=== PATIENT | female | born 1975 | race Two or more races ===

== ENCOUNTER 2021-05-28 08:29 | Outpatient (REF) | payer OTHER, SELFPAY ==
[2021-05-29 15:13] LABS: CT PCR NOT DETECTED (Not Detect.); NG PCR NOT DETECTED (Not Detect.)
[2021-05-30 10:50] LABS: BV Int Neg Control Negative (Negative); BV Int Pos Control Positive (Positive)
[2021-06-03 10:01] LABS: HPV mRNA E6/E7 rflx Not Detected (Not Detected)
== END 2021-05-28 08:30 | disposition home or self-care (01) ==
LOC: HO.LAB 08:29
PROVIDERS: Visit Provider Advanced Practice Midwife
DX: Z01.411 Encounter for gynecological examination (general) (routine) with abnormal findings (principal); Z11.3 Encounter for screening for infections with a predominantly sexual mode of transmission; Z11.51 Encounter for screening for human papillomavirus (HPV); N89.8 Other specified noninflammatory disorders of vagina; Z20.2 Contact with and (suspected) exposure to infections with a predominantly sexual mode of transmission
CPT/HCPCS: 87480; 87491; 87510; 87591; 87624; 87660; 88142

== ENCOUNTER 2021-07-01 09:14 | Outpatient (REF) | payer OTHER, SELFPAY ==
--- NOTE | ~2021-07-01 | MM_ITS ---
EXAMINATION: MM SCREENING DIGITAL BREAST TOMOSYNTHESIS, BILATERAL CLINICAL INFORMATION: Screening. Asymptomatic. The lifetime risk of breast cancer based on the Tyrer-Cuzick Model is 12.8%. COMPARISON: Mammography: July 18, 2013 TECHNIQUE: Digital breast tomosynthesis is performed in both the craniocaudal and mediolateral oblique views along with computer-aided detection (CAD). Synthesized 2D images are generated from the tomosynthesis. FINDINGS: There are scattered areas of fibroglandular density (ACR BI-RADS breast composition Category b). There are no significant masses, abnormal calcifications, or other abnormalities. MM/MM tomosynthesis screening BI IMPRESSION: There are no significant changes from prior study. ASSESSMENT: BI-RADS 1: Negative RECOMMENDATION: Routine annual mammography screening. This patient's information was entered into a reminder system with a target due date for their next mammogram.
== END 2021-07-01 09:15 | disposition home or self-care (01) ==
LOC: HO.MAMMO 09:14
PROVIDERS: Visit Provider Advanced Practice Midwife
DX: Z12.31 Encounter for screening mammogram for malignant neoplasm of breast (principal)
CPT/HCPCS: 77063; 77067

== ENCOUNTER 2021-07-28 17:18 | Emergency (ER) | payer OTHER, SELFPAY ==
--- NOTE | ~2021-07-28 | XR_ITS ---
EXAMINATION: XR CHEST CLINICAL INFORMATION: Syncopal episode. COMPARISON: Chest radiograph dated from 08/20/2012. TECHNIQUE: AP view of the chest was obtained. FINDINGS: Normal appearance of the cardiomediastinal silhouette. EKG wires overlie the patient. Clear lungs. No pleural effusions or pneumothorax. No acute osseous abnormalities. XR/XR chest 1V IMPRESSION: No acute cardiopulmonary findings.
--- NOTE | ~2021-07-28 | CT_ITS ---
EXAMINATION: CT HEAD WITHOUT CONTRAST CT CERVICAL SPINE WITHOUT CONTRAST CLINICAL INFORMATION: Trauma. COMPARISON: None. TECHNIQUE: Contiguous axial imaging was performed from the skull base to vertex without intravenous administration of contrast. Contiguous axial imaging was performed from the upper chest through the skull base without intravenous administration of contrast. Coronal and sagittal reformats were obtained at the acquisition workstation. This CT examination was performed using dose optimization techniques as appropriate, variously including the following: *Automated exposure control *Adjustment of mA and/or kV according to patient size (this includes techniques or standardized protocols for targeted exams where dose is matched to indication/reason for exam; i.e. extremities or head) *Use of iterative reconstruction technique DLP: 407 mGy-cm FINDINGS: Head: There is no evidence of acute intracranial hemorrhage or edematous territorial infarction. There is no abnormal attenuation within the brain parenchyma. Slater-white matter differentiation is preserved. The ventricles are normal in size and configuration. No evidence for obstructive hydrocephalus. No abnormal mass effect or midline shift. No extra-axial fluid collections. No acute soft tissue or osseous abnormalities. The mastoid air cells and paranasal sinuses are clear. Cervical Spine: The atlantooccipital and atlantoaxial articulations remain well aligned. Straightening of the normal cervical lordosis. Otherwise, there is anatomic alignment of the vertebral bodies and posterior elements. No evidence of acute fracture or subluxation. Mild cervical spondylosis with minimal disc space narrowing and anterior osteophytes. There is no prevertebral soft tissue swelling. The thyroid gland and remaining cervical soft tissues are normal in appearance. The lung apices demonstrate no abnormalities. CT/CT cervical spine wo con IMPRESSION: No acute intracranial pathology. No acute cervical fractures or malalignment.
[2021-07-28 17:30] VITALS: BP 121/75; BP 136/82; PULSE 18; PULSE 68; RESP 18; TEMP 36.9; O2SAT 98; BMI 30.2
--- NOTE | 2021-07-28 17:44 | ECG_ITS ---
Test Reason : SYNCOPE Blood Pressure : / mmHG Vent. Rate : 067 BPM Atrial Rate : 067 BPM P-R Int : 188 ms QRS Dur : 090 ms QT Int : 396 ms P-R-T Axes : 033 008 040 degrees QTc Int : 418 ms Normal sinus rhythm Normal ECG No previous ECGs available Referred By: Luc Pena Electronically Signed By:ADRIANA LYNNE MD
--- NOTE | 2021-07-28 17:48 | ED_ITS ---
HPI - Syncope General Chief Complaint: Syncope Stated Complaint: syncope Time Seen by Provider: 07/28/21 17:43 Source: patient Mode of arrival: ambulatory Limitations: no limitations History of Present Illness HPI narrative: 46-year-old female unvaccinated presents to the emergency department with cough for several days. She states she has had intermittent fevers and has had nausea with vomiting. Patient states today she was in the bathroom and she passed out she did hit her head. She is complaining of pain e verywhere. She has not taken anything for the pain. MD complaint: loss of consciousness and felt faint Onset (ago): hour(s) Related Data Previous Rx's Medication Instructions Recorded metronidazole 0.75 % vaginal gel 1 appful VAGINAL BID 5 Days #70 g 05/28/21 (Metrogel Vaginal) ondansetron 4 mg disintegrating 4 mg PO Q6H #14 tab 07/28/21 tablet Allergies Allergy/AdvReac Type Severity Reaction Status Date / Time morphine [Morphine] Allergy Severe HIVES Verified 05/28/21 08:41 Review of Systems Review of Systems: Review of systems: General: Fever chills and cough for several days Musculoskeletal: Hit head neck and back pain body aches all over her body HEENT: Headache denies, runny nose, ear pain Respiratory: Cough denies shortness of breath Cardiovascular: She denies palpitations but does have pain to her chest when she coughs or vomits : denies dysuria, frequency Abdomen: nausea vomiting denies abdominal pain Extremities: no swelling, no pain Skin: no diaphoresis Yes all other systems are reviewed and are negative [facility] Past Medical History Medical History (Updated 07/28/21 @ 19:54 by Luc Pena DO) Cervical cancer screening Simple ovarian cyst Surgical History (Updated 05/28/21 @ 08:51 by Domenic Blancas CMA) Hx of tonsillectomy Social History Social History Alcohol intake: current Alcohol intake frequency: holidays/special occasions only Patient Tobacco Use Status: Never used Tobacco Use of substances other than those prescribed or required for medical reasons: Yes Substance Use Type: Marijuana Substance Use Frequency: Occasionally Advance Directives: No Advance Directives Information Provided: No Gender identity: Female Physical Exam Vital Signs: Vital Signs: Last Vital Signs Temp 98.5 F 01/05/22 17:30 Pulse 67 07/28/21 19:28 Resp 14 07/28/21 19:28 BP 131/76 07/28/21 19:28 Pulse Ox 97 07/28/21 19:28 BMI result Body Mass Index 30.2 General: Well-appearing well-nourished in no signs of distress HEENT: Normocephalic atraumatic no hemotympanum no nasal septal hematoma Neck: No signs of JVD, no masses patient does have tenderness to the palpation of the midline of the spine and cervical area Cardiovascular: Regular rate and rhythm Respiratory: Clear to auscultation bilaterally Abdomen: Soft nontender no masses Extremities: Normal pedal pulses no signs of edema full range of motion of upper and lower extremities Skin: Dry warm no rashes Back: No tenderness full ROM MDM - Syncope MDM Narrative Medical decision making narrative: Patient here with syncope complaining of pain all over her body hard to assess if this is related to the trauma or due to her likely COVID infection we will send off labs give patient Toradol Ativan in fluids. Patient has remarkably normal vitals for her multiple complaints. 1905 patient is sitting up moving around in the bed looks much more comfortable she is playing with her iPhone. Patient is still pending lab draw and CT scan. 1936 labs are normal patient continues to have normal vitals patient states that she is not excited explained she is COVID positive. Tried to explain there is no bleed treatments for this as she coming off to me that she is worried about head and she continued to him about about her chest is. I did explain that her EKG and labs are all normal we are still waiting for chest x-ray and CT head neck. Lab Data Result diagrams: 07/28/21 19:11 07/28/21 19:11 Labs: Lab Results 07/28/21 07/28/21 07/28/21 Range/Units 19:11 19:11 19:11 WBC 4.4 L (4.8-10.8) X10*3/uL RBC 4.24 (4.20-5.50) X10*6/uL Hgb 13.9 (12.0-16.0) g/dl Hct 41.8 (37.0-47.0) % MCV 98.6 H (80.0-98.0) fL MCH 32.8 (27.0-33.0) pg MCHC 33.3 (31.0-35.0) g/dl RDW 12.3 (11.0-16.0) % Plt Count 263 (160-400) X10*3/uL MPV 10.5 (9.4-12.3) fL Immature Gran % (Auto) 0.0 (0.0-0.4) % Neut % (Auto) 51.4 (45-73) % Lymph % (Auto) 33.6 (20-40) % Swisher % (Auto) 14.3 H (2-11) % Eos % (Auto) 0.2 (0-4) % Baso % (Auto) 0.5 (0-2) % Lymph # (Auto) 1.5 (1.2-4.9) X10*3/uL Swisher # (Auto) 0.6 (0.1-1.2) X10*3/uL Eos # (Auto) 0.0 (0.0-0.4) X10*3/uL Baso # (Auto) 0.0 (0.0-0.2) X10*3/uL Abs Immat Gran (auto) 0.00 (0.00-0.03) X10*3/uL Absolute Neuts (auto) 2.2 (2.0-8.3) x10*3/uL Absolute Nucleated RBC 0.000 (0.0-0.012) X10*3/uL Nucleated RBC % (auto) 0.0 (0.0-0.2) /100WBC Sodium 141 (135-145) mmol/L Potassium 4.3 (3.3-5.1) mmol/L Chloride 109 H (96-108) mmol/L Carbon Dioxide 27 (22-29) mmol/L Anion Gap 9 L (12-20) BUN 6 L (9-16) mg/dL Creatinine 0.71 (0.5-1.4) mg/dL Estim Creat Clear Calc 101.2 Estimated GFR > 60 Random Glucose 89 (60-115) mg/dL Calcium 8.9 (8.4-10.2) mg/dL Total Bilirubin 0.3 (0.0-1.0) mg/dL Direct Bilirubin < 0.2 (0.0-0.5) mg/dL AST 26 (5-31) U/L ALT 30 (0-31) U/L Alkaline Phosphatase 65 (39-117) U/L Total Protein 6.8 (6.5-8.0) g/dL Albumin 4.0 (3.5-5.0) g/dL Lipase 35 (8-78) U/L COVID-19 (AUTUMN) Positive A (Negative) COVID-19 Clin Com See Note ECG Data Attestation: I personally reviewed and interpreted this ECG as follows: ECG interpretation date: 07/28/21 ECG interpretation time: 19:06 Prior ECG tracings: not available for review Pacemaker model: Rate 67 nsr normal intervals no signs of ischemia Discharge Plan Discharge Clinical Impression: COVID-19, Vomiting, Acute dehydration Patient Disposition: Still a Patient Transfer Details: Patient will be signed out pending CT XR to Dr. Zamora. Workup up to this point is negative. Expected disposition to home. Instructions: Acute Nausea and Vomiting (ED), COVID-19 (Coronavirus Disease 2019) (ED) Additional Instructions: You have COVID-19 you need to quarantine for the next 5 days. You should get vaccinated 90 days after you feel well. Using a COVID again even though you have had this 1 time. If you have any other concerns please do not hesitate to come back emergency department. Prescriptions: New ondansetron 4 mg tablet,disintegrating 4 mg PO Q6H Qty: 14 RF: 0 No Action metronidazole [Metrogel Vaginal] 0.75 % gel 1 appful vaginal BID 5 Days Qty: 70 RF: 2
[2021-07-28] MEDS: 0.9 % Sodium Chloride 500 ML 999 ML IV ×3 (18:18→20:20)
[2021-07-28] MEDS: LORazepam 2 MG/ML VIAL 1 MG IVPUSH (18:21)
[2021-07-28 19:16] LABS: MANUAL DIFF FLAG NO
[2021-07-28 19:25] LABS: Basophils Percent Auto 0.5 % (0-2); Eosinophils Percent Auto 0.2 % (0-4); Hematocrit 41.8 % (37.0-47.0); Hemoglobin 13.9 g/dl (12.0-16.0); Lymphocytes Absolute Auto 1.5 X10*3/uL (1.2-4.9); Lymphocytes Percent Auto 33.6 % (20-40); Mean Corpuscular HGB Conc 33.3 g/dl (31.0-35.0); Mean Corpuscular Hemoglobin 32.8 pg (27.0-33.0); Mean Corpuscular Volume 98.6 fL (80.0-98.0); Mean Platelet Volume 10.5 fL (9.4-12.3); Monocytes Absolute Auto 0.6 X10*3/uL (0.1-1.2); Monocytes Percent Auto 14.3 % (2-11); Neutrophils Absolute Auto 2.2 x10*3/uL (2.0-8.3); Neutrophils Percent Auto 51.4 % (45-73); Platelet Count 263 X10*3/uL (160-400); Red Blood Count 4.24 X10*6/uL (4.20-5.50); Red Cell Distribution Width 12.3 % (11.0-16.0); White Blood Count 4.4 X10*3/uL (4.8-10.8)
[2021-07-28 19:26] LABS: COVID-19 Test Positive (Negative)
[2021-07-28 19:28] VITALS: BP 131/76; PULSE 67; RESP 14; O2SAT 97
[2021-07-28 19:43] LABS: Alanine Aminotransferase 30 U/L (0-31); Alkaline Phosphatase 65 U/L (39-117); Anion Gap 9 (12-20); Aspartate Amino Transferase 26 U/L (5-31); Bilirubin Direct < 0.2 mg/dL (0.0-0.5); Bilirubin Total 0.3 mg/dL (0.0-1.0); Blood Urea Nitrogen 6 mg/dL (9-16); Calcium 8.9 mg/dL (8.4-10.2); Carbon Dioxide 27 mmol/L (22-29); Chloride 109 mmol/L (96-108); Creatinine Clr Calc Pharmacy 101.2; Estimated Glomerular Filt Rate > 60; Glucose Random 89 mg/dL (60-115); Lipase 35 U/L (8-78); Potassium 4.3 mmol/L (3.3-5.1); Sodium 141 mmol/L (135-145); Total Protein 6.8 g/dL (6.5-8.0)
[2021-07-28] MEDS: Ketorolac Tromethamine 30 MG/ML VIAL 15 MG IVPUSH (20:13)
[2021-07-28] MEDS: ondansetron HCL 4 MG/2 ML VIAL IVPUSH (20:24)
[2021-07-28] MEDS: Acetaminophen 325 MG TABLET 650 MG PO (20:25)
[2021-07-28] MEDS: predniSONE 20 MG TABLET 60 MG PO (20:26)
[2021-07-28 21:36] VITALS: BP 137/86; PULSE 76; RESP 18; O2SAT 98
== END 2021-07-28 21:37 | disposition still patient (30) ==
PROVIDERS: Emergency Provider Student in an Organized Health Care Education/Training Program
DX: U07.1 COVID-19 (principal); E86.0 Dehydration; R11.10 Vomiting, unspecified
CPT/HCPCS: 70450; 71045; 72125; 80048; 80076; 83690; 85025; 87635; 93005; 96374; 96375; 99284; J1885; J2060; J2405

== ENCOUNTER 2021-08-11 10:12 | Outpatient (REF) | payer OTHER, SELFPAY ==
[2021-08-11 10:37] LABS: COVID-19 Test Negative (Negative); IDNOW Serial# 16C4AD1C
== END 2021-08-11 10:13 | disposition home or self-care (01) ==
LOC: HO.LAB 10:12
PROVIDERS: Visit Provider Internal Medicine
DX: Z20.822 Contact with and (suspected) exposure to COVID-19 (principal)
CPT/HCPCS: 87635; C9803

== ENCOUNTER 2021-10-14 09:25 | Outpatient (REF) | payer OTHER, SELFPAY ==
[2021-10-14 10:04] LABS: Baso%MD 1.1 %; Eos%MD 2.9 %; Hematocrit 42.5 % (37.0-47.0); Hemoglobin 13.5 g/dl (12.0-16.0); IG%MD 0.2 %; Lymph%MD 31.6 %; Mean Corpuscular HGB Conc 31.8 g/dl (31.0-35.0); Mean Corpuscular Hemoglobin 32.2 pg (27.0-33.0); Mean Corpuscular Volume 101.4 fL (80.0-98.0); Mean Platelet Volume 10.3 fL (9.4-12.3); Mono%MD 8.7 %; Neut%MD 55.5 %; Platelet Count 360 X10*3/uL (160-400); Red Blood Count 4.19 X10*6/uL (4.20-5.50); Red Cell Distribution Width 12.5 % (11.0-16.0); White Blood Count 6.6 X10*3/uL (4.8-10.8)
[2021-10-14 10:43] LABS: Estimated Average Glucose 108 mg/dL; Hemoglobin A1c % 5.4 %
[2021-10-14 10:45] LABS: Alanine Aminotransferase 16 U/L (0-31); Albumin Level 4.2 g/dL (3.5-5.0); Alkaline Phosphatase 60 U/L (39-117); Anion Gap 15 (12-20); Aspartate Amino Transferase 18 U/L (5-31); Bilirubin Total 0.5 mg/dL (0.0-1.0); Blood Urea Nitrogen 10 mg/dL (9-16); Calcium 9.7 mg/dL (8.4-10.2); Carbon Dioxide 25 mmol/L (22-29); Chloride 108 mmol/L (96-108); Cholesterol 215 mg/dL; Estimated Glomerular Filt Rate > 60; Glucose Fasting 107 mg/dL (60-99); HDL Cholesterol 64 mg/dL; LDL Cholesterol Calculated 139 mg/dl; Potassium 4.6 mmol/L (3.3-5.1); Sodium 143 mmol/L (135-145); Total Protein 7.1 g/dL (6.5-8.0); Triglycerides 62 mg/dL
[2021-10-14 11:03] LABS: Folate 14.7 ng/mL (> or = 4.0); Vitamin B12 507 pg/mL (200-900)
[2021-10-14 11:07] LABS: TSH reflex Free T4 5.74 uIU/mL (0.32-4.0)
[2021-10-14 13:00] LABS: Eosinophils Absolute Manual 0.1 X10*3/uL (0.0-0.4); Eosinophils Percent Manual 1 % (0-4); Lymphocytes Percent Manual 31 % (20-40); Monocytes Absolute Manual 0.5 X10*3/uL (0.1-1.2); Monocytes Percent Manual 8 % (2-11); Neutrophils Percent Manual 60 % (45-73); Platelet Estimate NORMAL (NORMAL); Platelet Morphology Comment NORMAL; RBC Morphology NORMAL
[2021-10-14 13:17] LABS: Band Neutrophils Percent 0 % (3-5)
[2021-10-14 14:28] LABS: Free T4 (Free Thyroxine) 0.69 ng/dL (0.71-1.85)
[2021-10-19 15:51] LABS: Vitamin D 25-OH, D2 10 ng/mL; Vitamin D 25-OH, D3 19 ng/mL; Vitamin D 25-OH, Total 29 ng/mL (30-100)
== END 2021-10-14 09:26 | disposition home or self-care (01) ==
LOC: HO.LAB 09:25
PROVIDERS: PCP Nurse Practitioner Acute Care; Visit Provider Nurse Practitioner Acute Care
DX: Z00.00 Encounter for general adult medical examination without abnormal findings (principal); E03.9 Hypothyroidism, unspecified; E55.9 Vitamin D deficiency, unspecified
CPT/HCPCS: 36415; 80053; 80061; 82306; 82607; 82746; 83036; 84439; 84443; 85007; 85027

== ENCOUNTER 2022-05-19 12:22 | Outpatient (REF) | payer OTHER, SELFPAY ==
[2022-05-19 12:59] LABS: MANUAL DIFF FLAG NO
[2022-05-19 13:40] LABS: Basophils Absolute Auto 0.1 X10*3/uL (0.0-0.2); Basophils Percent Auto 0.9 % (0-2); Eosinophils Absolute Auto 0.2 X10*3/uL (0.0-0.4); Eosinophils Percent Auto 2.1 % (0-4); Hematocrit 43.2 % (37.0-47.0); Imm Gran Abs Auto 0.02 X10*3/uL (0.00-0.03); Imm Gran Pct Auto 0.3 % (0.0-0.4); Lymphocytes Absolute Auto 1.9 X10*3/uL (1.2-4.9); Lymphocytes Percent Auto 27.4 % (20-40); Mean Corpuscular HGB Conc 32.4 g/dl (31.0-35.0); Mean Corpuscular Hemoglobin 32.5 pg (27.0-33.0); Mean Corpuscular Volume 100.2 fL (80.0-98.0); Mean Platelet Volume 10.9 fL (9.4-12.3); Monocytes Absolute Auto 0.6 X10*3/uL (0.1-1.2); Monocytes Percent Auto 7.8 % (2-11); Neutrophils Absolute Auto 4.3 x10*3/uL (2.0-8.3); Neutrophils Percent Auto 61.5 % (45-73); Platelet Count 367 X10*3/uL (160-400); Red Blood Count 4.31 X10*6/uL (4.20-5.50); Red Cell Distribution Width 12.4 % (11.0-16.0)
[2022-05-19 14:27] LABS: Alanine Aminotransferase 11 U/L (0-31); Albumin Level 4.3 g/dL (3.5-5.0); Alkaline Phosphatase 62 U/L (39-117); Anion Gap 15 (12-20); Aspartate Amino Transferase 14 U/L (5-31); Bilirubin Total 0.4 mg/dL (0.0-1.0); Blood Urea Nitrogen 10 mg/dL (9-16); Calcium 9.6 mg/dL (8.4-10.2); Carbon Dioxide 23 mmol/L (22-29); Chloride 109 mmol/L (96-108); Cholesterol 195 mg/dL; Estimated Glomerular Filt Rate > 60; Glucose Fasting 107 mg/dL (60-99); HDL Cholesterol 57 mg/dL; LDL Cholesterol Calculated 125 mg/dl; Potassium 5.2 mmol/L (3.3-5.1); Sodium 142 mmol/L (135-145); Total Protein 7.1 g/dL (6.5-8.0); Triglycerides 68 mg/dL
[2022-05-19 14:35] LABS: TSH reflex Free T4 4.06 uIU/mL (0.32-4.0); Vitamin D 25-OH Total 21.6 ng/mL (>30)
[2022-05-19 15:09] LABS: Free T4 (Free Thyroxine) 0.74 ng/dL (0.71-1.85)
== END 2022-05-19 12:23 | disposition home or self-care (01) ==
LOC: HO.LAB 12:22
PROVIDERS: Visit Provider Nurse Practitioner Family
DX: E03.9 Hypothyroidism, unspecified (principal)
CPT/HCPCS: 36415; 80053; 80061; 82306; 84439; 84443; 85025

== ENCOUNTER 2022-09-28 12:53 | Outpatient (REF) | payer OTHER, SELFPAY ==
[2022-09-28 17:28] LABS: CT PCR NOT DETECTED (Not Detect.); NG PCR NOT DETECTED (Not Detect.)
[2022-09-29 09:38] LABS: BV Int Neg Control Negative (Negative); BV Int Pos Control Positive (Positive)
== END 2022-09-28 12:54 | disposition home or self-care (01) ==
LOC: HO.LNP 12:53
PROVIDERS: Visit Provider Advanced Practice Midwife
DX: Z01.419 Encounter for gynecological examination (general) (routine) without abnormal findings (principal)
CPT/HCPCS: 0353U; 87480; 87510; 87660

== ENCOUNTER 2023-05-03 10:54 | Outpatient (AMB) | payer OTHER, SELFPAY ==
[2023-05-03 11:00] VITALS: BP 118/82; PULSE 74; O2SAT 99; BMI 30.2
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
== END 2023-05-03 11:38 | disposition home or self-care (01) ==
PROVIDERS: PCP Nurse Practitioner Family; Visit Provider Nurse Practitioner Family
DX: E06.3 Autoimmune thyroiditis (principal); F33.0 Major depressive disorder, recurrent, mild; E03.8 Other specified hypothyroidism; K64.4 Residual hemorrhoidal skin tags; Z23 Encounter for immunization; G47.00 Insomnia, unspecified; H53.8 Other visual disturbances; L71.9 Rosacea, unspecified; F41.9 Anxiety disorder, unspecified
CPT/HCPCS: 90471; 90686; 99214

== ENCOUNTER 2023-05-03 11:43 | Outpatient (REF) | payer OTHER, SELFPAY | END 2023-05-03 11:44 | disposition home or self-care (01) | LOC: HO.LAB 11:43 | PROVIDERS: Visit Provider Nurse Practitioner Family | DX: E03.8 Other specified hypothyroidism (principal); E06.3 Autoimmune thyroiditis; E55.9 Vitamin D deficiency, unspecified | CPT/HCPCS: 36415; 80053; 82306; 84439; 84443; 85025 ==

== ENCOUNTER 2023-05-18 15:02 | Outpatient (AMB) | payer OTHER, SELFPAY ==
--- NOTE | 2023-05-18 15:06 | A.OFFVIS_ITS ---
Intake Vital Signs 05/18/23 15:14 Height 5 ft 4 in Weight 179 lb BMI 30.7 BP 116/67 Blood Pressure Location Rt brachial Position Sitting Pulse 76 Intake Visit Reasons: Residual hemorrhoidal skin lesions Intake Note: This patient presents for an assessment for residual hemorrhoidal skin tags. Patient c/o; reports had moderate rectal bleeding yesturday 05/17/23, denies history of constipation. 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 She says that she has had hemorrhoids since she was almost 30 years ago. She says that she always has had some problems with swelling and pain as well as bleeding on and off for several years. However, recently, she says that this has been worsening. She says that the hemorrhoids were be swollen to the size of a grape and would be very painful. She says that this has been happening frequently. She also says that she would see bright red blood on wiping more frequently She denies being constipated. She denies other GI complaints. [facility] Medical History (Updated 05/18/23 @ 15:24 by Nguyễn Alfredo MD) Hemorrhoids with complication Anxiety Major depression, recurrent Rosacea Vitamin D deficiency Hypothyroidism COVID-19 Cervical cancer screening Simple ovarian cyst Surgical History Hx of tonsillectomy Family History Paternal Aunt Breast cancer Father Stomach cancer Social History Housing: Apartment Alcohol intake: current Alcohol intake frequency: holidays/special occasions only Patient Tobacco Use Status: Never used Tobacco e-Cigarette/Vaping Use: Never Used Second Hand Smoke Exposure: No Substance Use Type: Marijuana service: No Current occupational status: unemployed Gender identity: Female Cognitive needs: No Hearing needs: No Vision needs: Yes (glasses) Female Reproductive History Menstrual Age of Menarche: 9 Review of Systems Const Denies chills and Denies fever(s) Card Denies chest pain, Denies dyspnea and Denies dyspnea on exertion Resp Denies cough, Denies dyspnea and Denies dyspnea on exertion GI Reports hematochezia and Denies change in bowel habits Denies hematuria Musc Denies back pain and Denies limited range of motion Neuro Denies focal weakness and Denies convulsions Psych Denies depression and Denies mood swings Physical Exam Vital Signs: Last Vital Signs Pulse 76 05/18/23 15:14 BP 116/67 05/18/23 15:14 BMI result Body Mass Index 30.7 Const General: comfortable and no acute distress Orientation/consciousness: patient oriented x3 Neck Neck: Yes no lymphadenopathy Resp Auscultation: clear to auscultation bilaterally Cardio Rhythm: regular rhythm GI Other: Rectal exam shows a bulky external hemorrhoid on the posterior aspect. There was a moderate-sized external hemorrhoid on the anterior aspect as well. Anoscopy was also done as described Palpation (GI): Soft to palpation, nontender and no guarding Neuro General: patient oriented x3 Office Procedures Anoscopy She was in sherrell-knife position. The anoscope was gently inserted. A full examination of the anal canal was done. She did have large column of mixed internal external hemorrhoids posteriorly. Another column was seen also moderate size, internal external, anteriorly. There were no other lesions. There was no fissure or any induration. There was no bleeding. [id number] Assessment & Plan Assessment & Plan (1) Hemorrhoids with complication: Code(s): K64.8 - Other hemorrhoids Plan: She describes worsening, pain and bleeding over hemorrhoids. She says that she has had this for almost 30 years since she had her . She now wants to proceed with hemorrhoidectomy in view of worsening symptoms. I explained to her the technique of exam under anesthesia and hemorrhoidectomy. I discussed the risks including but not limited to bleeding, infections, postop pain, sphincter injury, as well as the benefits and alternatives. I reviewed with her what to expect postoperatively. She says she understands and wants to proceed. Coding Level of Care Code New Pt Level 3 (75037) Diagnoses Hemorrhoids with complication K64.8 CPT Codes Details - CPT: 95353-Fsyoccmz ([id number])
[2023-05-18 15:14] VITALS: BP 116/67; PULSE 76; BMI 30.7
== END 2023-05-18 15:31 | disposition home or self-care (01) ==
PROVIDERS: PCP Nurse Practitioner Family; Referring Provider Nurse Practitioner Family; Visit Provider Surgery
DX: K64.8 Other hemorrhoids (principal)
CPT/HCPCS: 46600; 99203

== ENCOUNTER → 2023-05-18 15:02 | Outpatient (BNVA) | payer OTHER, SELFPAY | PROVIDERS: PCP Nurse Practitioner Family; Referring Provider Nurse Practitioner Family; Visit Provider Surgery | DX: K64.8 Other hemorrhoids (principal) | CPT/HCPCS: 46600; 99202 ==

== ENCOUNTER 2023-08-11 07:26 | Day surgery (SDC) | payer OTHER, SELFPAY ==
--- NOTE | 2023-08-09 11:58 | HO.ANESPROP2 ---
Documented by User: Ingrid Zapata NP 08/09/23 11:59 HPI - Anesthesia Eval Consult details Narrative: 48yo F for EUA,Hemorrhoidectomy PMFSH Active Problems Active Problems: All Active Problems (Updated 05/18/23 @ 15:24 by Nguyễn Alfredo MD) Hemorrhoids with complication (Acute) External hemorrhoids (Acute) Insomnia (Acute) Blurry vision (Acute) Family planning counseling (Acute) Perimenopausal symptoms (Acute) Screen for sexually transmitted diseases (Acute) Breast cancer screening (Acute) Vitamin D deficiency (Acute) Hypothyroidism (Acute) Anxiety (Acute) Major depression, recurrent (Acute) Rosacea (Acute) Abscess of left thigh (Acute) Physical exam (Acute) Cervical cancer screening (Acute) Vaginal dryness (Acute) Vaginal odor (Acute) Vaginal lesion (Acute) Well woman exam with routine gynecological exam (Acute) Past Medical History Medical History Hx of Hemorrhoids with complication Anxiety Major depression, recurrent Rosacea Vitamin D deficiency Hypothyroidism COVID-19 Cervical cancer screening Simple ovarian cyst Family History Family History Paternal Aunt Breast cancer Father Stomach cancer Surgical History Surgical History Hx of tonsillectomy Social History Social History (Updated 08/11/23 @ 08:58 by Tasha Kaplan MD) Housing: Apartment Alcohol intake: current Alcohol intake frequency: does not drink Patient Tobacco Use Status: Current someday Tobacco user e-Cigarette/Vaping Use: Never Used Second Hand Smoke Exposure: No Substance Use Type: Marijuana service: No Current occupational status: unemployed Gender identity: Female Cognitive needs: No Hearing needs: No Vision needs: Yes (glasses) Meds Allergies Allergy/AdvReac Type Severity Reaction Status Date / Time morphine [Morphine] Allergy Severe HIVES Verified 05/18/23 15:17 Exam Pertinent Lab Results Pertinent Lab Results: Laboratory Tests 05/03/23 12:13 WBC 6.7 Hgb 13.5 Hct 41.2 Plt Count 327 Sodium 141 Potassium 4.2 Chloride 109 H Carbon Dioxide 24 BUN 7 L Creatinine 0.70 Assessment and Plan Assessment Anesthesia Assessment: Chart Reviewed Documented by User: Tasha Kaplan MD 08/11/23 09:00 PMFSH Past Medical History Medical History Hx of Hemorrhoids with complication Anxiety Major depression, recurrent Rosacea Vitamin D deficiency Hypothyroidism COVID-19 Cervical cancer screening Simple ovarian cyst Family History Family History Paternal Aunt Breast cancer Father Stomach cancer Family history of problems with anesthesia: No Surgical History Surgical History Hx of tonsillectomy History of Problems with Anesthesia: No Social History Social History (Updated 08/11/23 @ 08:58 by Tasha Kaplan MD) Housing: Apartment Alcohol intake: current Alcohol intake frequency: does not drink Patient Tobacco Use Status: Current someday Tobacco user e-Cigarette/Vaping Use: Never Used Second Hand Smoke Exposure: No Substance Use Type: Marijuana service: No Current occupational status: unemployed Gender identity: Female Cognitive needs: No Hearing needs: No Vision needs: Yes (glasses) Meds Allergies Allergy/AdvReac Type Severity Reaction Status Date / Time morphine [Morphine] Allergy Severe HIVES Verified 05/18/23 15:17 Exam Height,Weight and Vital Signs: Height 5 ft 4 in Weight 83.007 kg Vital Signs Temp Pulse Resp BP Pulse Ox O2 Del Method 08/11/23 07:44 98.4 F 66 18 126/67 98 Room Air Pertinent Lab Results Pertinent Lab Results: Laboratory Tests 05/03/23 12:13 WBC 6.7 Hgb 13.5 Hct 41.2 Plt Count 327 Sodium 141 Potassium 4.2 Chloride 109 H Carbon Dioxide 24 BUN 7 L Creatinine 0.70 Lab Results 08/11/23 Range/Units 07:35 Urine Test NEGATIVE (NEGATIVE) Airway Mallampati Class: II TM Dist: >3cm Neck ROM: Full Loose/Missing/Broken Teeth: Yes (Missing teeth top back right and left. Denies broken or loose) Heart: RRR Lungs: CTAB Assessment and Plan Assessment Anesthesia Assessment: Anesthesia Plan Discussed Final Anesthetic Review Family History of Problems with Anesthesia: No History of Problems with Anesthesia: No NPO: Yes ASA Class: II Final Preanesthetic Review: No Changes in Pt Med Stat, Meds/Allgs Chart Reviewed, Consent Obtained/Reviewed and Anes Risks/Benef Reviewed Patient Risk: Low Procedure Risk: Low Assessment/Block/Sedation in SS: Assess/Block/Sedation-SS Anesthetic Plan Anesthetic Plan: GA Disposition: Standard PACU
[2023-08-09 16:04] VITALS: BMI 30.7
[2023-08-11] VITALS (35 sets, daily range): BP systolic 86–137; BP diastolic 40–82; PULSE 51–108; RESP 9–32; TEMP 36.5–36.9; O2SAT 95–100; BMI 31.4
--- NOTE | ~2023-08-11 | XR_ITS ---
EXAMINATION: XR CHEST CLINICAL INFORMATION: Shortness of breath COMPARISON: Chest 07/28/2021 TECHNIQUE: Frontal view of the chest was obtained. FINDINGS: No significant abnormality is noted involving the heart, lungs, mediastinum, bony thorax or soft tissues. XR/XR chest 1V IMPRESSION: Unremarkable chest examination.
[2023-08-11 07:47] LABS: UPreg QC Valid YES; Urine Pregnancy NEGATIVE (NEGATIVE)
--- NOTE | 2023-08-11 07:48 | PC.NURSE ---
last smoked marijuana and cigerette yesterday ls clear
[2023-08-11] MEDS: Lactated Ringers 1,000 ML 100 ML IVCONT (07:57)
--- NOTE | 2023-08-11 08:14 | MHC.SHP ---
Pre-Procedural Eval Section A Date of Service: 08/11/23 Section B Chief Complaint: Other hemorrhoids Details of Present Illness: has had a long hx of pain and swelling along with bleeding with her hemorrhoids Relevant Family History (Specify if Yes): No Relevant Social History: None Present Medications: see Short Stay Collaborative assessment Medical History: Significant History (thyroid ds, depression) Allergies: Allergies Allergy/AdvReac Type Severity Reaction Status Date / Time morphine [Morphine] Allergy Severe HIVES Verified 05/18/23 15:17 Review of Systems Sugical H&P ROS: Negative: Constitution, Cardiovascular, Respiratory, Neurological, Psychiatric, Hem-Onc, Allergic/Immunologic, Gastrointestinal, Genitourinary, Musculoskeletal, Integumentary, Endocrine and Eyes/Ears/Nose/Throat Exam Surgical H&P Exam: Normal: HEENT, Normal: Heart, Normal: Lungs, Normal: Extremities, Normal: Abdomen, Normal: Skin and Normal: Neurological Exam Comment: has internal and external hemorrhoids Plan Diagnosis/Plan: Unchanged I have reviewed the history and physical and performed a pertinent physical examination on my patient. No changes have occurred unless specified. Time Spent With Patient Time: Total time managing care of this patient today ____ minutes.
--- NOTE | 2023-08-11 09:57 | P.OP_ITS ---
Operative Note Operative Note Date of Service: 08/11/23 Narrative: Preop diagnosis: Internal and external hemorrhoids with pain and bleeding Postop diagnosis: The same Procedure: Exam under anesthesia, hemorrhoidectomy x2 columns Surgeon: Nguyễn Alfredo MD The patient is a 48 year old female who has had a long history of problems with her hemorrhoids. This includes pain, frequent swelling and bleeding. She therefore wanted to proceed with hemorrhoidectomy. She understood the technique of the planned procedure as well as the risks, benefits, and alternatives. She was brought to the operating room. She was placed in prone sherrell-knife position under general anesthesia via endotracheal tube. The buttocks were retracted with wide tape laterally. The perianal area was prepped and draped this was sterile fashion. A surgical time-out was done. The patient received C efotan 2 g IV preoperatively Examination of the anal orifice revealed a large hemorrhoidal column on the right posterior. A smaller hemorrhoidal column was seen on the left anterior. I inserted the Virginia Martell retractor. I examined the anal canal circumferentially. These hemorrhoidal columns were noted to be a mix of internal external. I applied a Richard grasper at the hemorrhoidal column on the right posterior to retract this out in the field. I made a hsxnlb-dy-qetfl stitch at its pedicle past the dentate line using a chromic 3-0. I made an incision around this hemorrhoidal column to the perianal skin with a blade 15. I excised this hemorrhoidal column above the pain as a sphincters along this incision using scissors. This was delivered and sent as specimen. I closed the incision with a running chromic 3-0 stitch. Additional hemostatic rrkgjc-pv-wferp sutures were placed . The same procedure was duplicated on the smaller hemorrhoidal column the right anterior. Again this was retracted with Richard graspers. I made a zkhisn-fy-yorrs stitch at the pedicle. I made an incision around this column to the perianal skin with a blade 15. I excised this hemorrhoidal column above the plane of sphincters using scissors I closed this incision with a running chromic 3-0 stitch. Additional hemostatic sutures were placed for oozing areas Once hemostasis was confirmed, I placed a rolled Gelfoam into the anal canal for additional hemostasis. I infiltrated the perianal area with Marcaine 0.5% for postop analgesia Dressings were applied. The procedure was completed. There were no immediate complications. Initial and final counts of sponges and instruments were correct. Estimated blood loss was about 30 cc. The patient was extubated without difficulty and transferred to the recovery room with stable vital signs.
[2023-08-11] MEDS: fentaNYL citrate/PF 100 MCG/2 ML VIAL 25 MCG IVPUSH ×4 (10:12→10:32)
[2023-08-11] MEDS: Acetaminophen 325 MG TABLET 650 MG PO (10:27)
[2023-08-11] MEDS: oxyCODONE HCl Immed Release 5 MG TABLET PO (10:27)
[2023-08-11] MEDS: HYDROmorphone HCl 0.5 MG/0.5 ML SYRINGE IVPUSH (10:42)
--- NOTE | 2023-08-11 13:17 | ECG_ITS ---
Test Reason : CHEST PAIN Blood Pressure : / mmHG Vent. Rate : 078 BPM Atrial Rate : 078 BPM P-R Int : 164 ms QRS Dur : 070 ms QT Int : 384 ms P-R-T Axes : 032 056 058 degrees QTc Int : 437 ms Normal sinus rhythm Normal ECG When compared with ECG of 28-JUL-2021 18:54, No significant change was found Referred By: Nannette Su Electronically Signed By:
[2023-08-11] MEDS: Albuterol/Iprat 2.5/0.5MG 3 ML AMPUL.NEB INHALE (13:34)
[2023-08-11] MEDS: Midazolam HCl/PF 2 MG/2 ML VIAL IVPUSH (13:58)
[2023-08-11] MEDS: Albuterol Sulfate 2.5 MG, Albuterol Sulfate (0.083%) 2.5 MG 5 MG INHALE (14:21)
--- NOTE | 2023-08-11 14:24 | PC.RT ---
called to evaluate pt in pacu. Pt s/p hemorrhoidectomy. c/o of sob and chest tightness as well as under left breast pain radiating down left arm to fingers and tingling. ekg/cxr done and pending.? if pt will go to ER after recovering from surgery.
== END 2023-08-11 14:50 | disposition home or self-care (01) ==
PROVIDERS: Nurse Practitioner; PCP Nurse Practitioner Family; Visit Provider Surgery
PROC: (CPT 46260; principal; 2023-08-11 09:00)
DX: K64.8 Other hemorrhoids (principal); K64.4 Residual hemorrhoidal skin tags
CPT/HCPCS: 46260; 71045; 81025; 88304; 93005; J0665; J1100; J1170; J2250; J2405; J2704; J2795; J3010

== ENCOUNTER → 2023-08-11 07:26 | Outpatient (BNV) | payer OTHER, SELFPAY | PROVIDERS: PCP Nurse Practitioner Family; Visit Provider Surgery | DX: K64.8 Other hemorrhoids (principal) | CPT/HCPCS: 46260 ==

== ENCOUNTER 2023-08-11 14:46 | Emergency (ER) | payer OTHER, SELFPAY ==
--- NOTE | 2023-08-11 15:00 | ECG_ITS ---
Test Reason : SOB Blood Pressure : / mmHG Vent. Rate : 075 BPM Atrial Rate : 075 BPM P-R Int : 138 ms QRS Dur : 082 ms QT Int : 390 ms P-R-T Axes : 016 029 043 degrees QTc Int : 435 ms Artifact in tracing Normal sinus rhythm with sinus arrhythmia Normal ECG When compared with ECG of 11-AUG-2023 13:22, No significant change was found Referred By: Ally Garrison Electronically Signed By:ZAKIA TORRES
[2023-08-11] MEDS: Albuterol Sulfate 5 MG, Albuterol Sulfate (0.083%) 2.5 MG 7.5 MG INHALE (15:02)
[2023-08-11 15:03] VITALS: PULSE 86; RESP 18; O2SAT 98
[2023-08-11 15:06] VITALS: PULSE 109; RESP 24; O2SAT 100; BMI 30.8
--- NOTE | 2023-08-11 15:07 | ED.GENADULT ---
HPI - General Adult General Chief complaint: General Medical Stated complaint: SOB Time Seen by Provider: 08/11/23 14:53 History of Present Illness HPI narrative: 48 y/o F patient; PMH hemorrhoids, hypothyroidism, anxiety; presents to the emergency department from the PACU with concern for shortness of breath. The patient had an uncomplicated hemorrhoidectomy x2 columns. For the procedure she was placed in a prone sherrell-knife position and remained intubated with ETT. Following the procedure patient reported significant discomfort. She was medicated with Versed and Fentanyl. She fell asleep however upon waking up she developed left-sided chest pain radiating down her left arm into her elbow. She was also noticed to have a forced end-expiratory wheeze which was treated with breathing treatment x3 prior to arrival in the emergency department. Patient otherwise denies: nausea/vomiting, abdominal pain, back pain. Related Data Previous Rx's Medication Instructions Recorded bupropion HCl 150 mg tablet,12 hr 150 mg PO DAILY #30 tabs 05/03/23 sustained-release levothyroxine 100 mcg tablet 100 mcg PO DAILY #30 tabs 05/03/23 witch rahul 50 % topical pads 1 pad topical BID PRN skin 05/03/23 (Preparation H (Witch Rahul)) irritation #48 ea cholecalciferol (vitamin D3) 25 25 mcg PO DAILY #90 tabs 05/12/23 mcg (1,000 unit) tablet hydroxyzine HCl 25 mg tablet 25 mg PO TID PRN anxiety #84 tabs 06/02/23 docusate sodium 100 mg capsule 100 mg PO BID #60 caps 08/11/23 (Colace) ibuprofen 600 mg tablet 600 mg PO Q6H PRN pain #30 tabs 08/11/23 oxycodone-acetaminophen 5 mg-325 1 tab PO Q4-6H PRN pain #25 tabs 08/11/23 mg tablet (Percocet) Allergies Allergy/AdvReac Type Severity Reaction Status Date / Time morphine [Morphine] Allergy Severe HIVES Verified 05/18/23 15:17 Review of Systems Review of Systems: Yes all other systems are reviewed and are negative PMFSH Past Medical History Attestation statement: The following information was validated with the patient. Source: old records reviewed Onset Date is defined in the Problem List Problems that require an onset date and time if occurred within 24 hrs of arrival to the ED Aortic Dissection and Rupture; Neurologic impairment; Cardiopulmonary Arrest; Endotracheal Intubation; Insertion or Replacement of Mechanical Circulatory Assist Device Medical History Hx of Hemorrhoids with complication Anxiety Major depression, recurrent Rosacea Vitamin D deficiency Hypothyroidism COVID-19 Cervical cancer screening Simple ovarian cyst Surgical History Hx of tonsillectomy Family History Family History Paternal Aunt Breast cancer Father Stomach cancer Social History Social History Housing: Apartment Alcohol intake: current Alcohol intake frequency: holidays/special occasions only Comment: Pt transfered to ED for evaluation and Tx of SOB and CP Patient Tobacco Use Status: Current someday Tobacco user Smoked in Last 30 Days: No e-Cigarette/Vaping Use: Never Used Second Hand Smoke Exposure: No Substance Use Type: Marijuana Advance Directives: No Advance Directives Information Provided: No service: No Current occupational status: unemployed Gender identity: Female Cognitive needs: No Hearing needs: No Vision needs: Yes (glasses) Physical Exam ED Vital Signs: Vital Signs - 24 hr 08/11/23 15:03 08/11/23 15:06 08/11/23 15:20 Pulse Rate 86 109 H 114 H Respiratory Rate 18 24 H 20 Blood Pressure 107/61 Pulse Oximetry 100 97 Oxygen Delivery Method Room Air Room Air BMI result Body Mass Index 30.8 Patient is afebrile and hemodynamically stable, saturating well on RA HENMT Head: Yes normal to inspection and Yes atraumatic Eyes General: appearance normal, both eyes and all related structures Neck Neck: Yes full ROM, Yes supple and No tender Chest Chest palpation & inspection: normal inspection of the chest and normal palpation of entire chest wall Resp Other: Forced end-expiratory wheeze with coughing Effort & Inspection: able to speak in complete sentences and Actively coughing Cardio Rate: regular rate Rhythm: regular rhythm Peripheral pulses: Peripheral pulses 2+ throughout GI Inspection: No Abdominal wall edema and No distended Palpation (GI): Soft to palpation, not firm, nontender, no guarding and not rigid Auscultation: normal bowel sounds Course Course Course Narrative: Patient is afebrile and hemodynamically stable. Suspect discomfort is MSK 2/2 to positioning during recent surgery. However will obtain laboratory studies to assess for ACS, low suspicion with reassuring EKG. Reviewed CXR obtained in PACU - no evidence of focal infiltrate, pneumothorax, dissection. Reevaluation(s) Reevaluation #1: EKG reassuring. Laboratory studies with mild leukocytosis likely reactive to recent surgery and stress. VBG with respiratory alkalosis 2/2 to hyperventilation. Troponin negative. Provided Toradol and Tylenol for pain control. Reevaluation #2: Discussed with patient that her sensation of shortness of breath is likely 2/2 to bronchospasm in the setting of recent intubation. Patient is saturating at 100% on RA with clear breath sounds bilaterally. Plan: Discharge to home with PCP and surgery follow up Return precautions given Pain rx sent to pharmacy by primary surgical team Medications Administered Discontinued Medications Generic Name Dose Route Start Last Admin Trade Name Freq PRN Reason Stop Dose Admin Acetaminophen 975 mg 08/11/23 15:29 08/11/23 15:49 Acetaminophen 325 Mg Tablet PO 08/11/23 15:30 975 mg ONCE ONE Administration Albuterol Sulfate 5 mg/ 7.5 mg 08/11/23 15:00 08/11/23 15:02 Albuterol Sulfate 2.5 mg INHALE 08/11/23 15:01 7.5 mg ONCE ONE Administration Ketorolac Tromethamine 15 mg 08/11/23 15:31 08/11/23 15:49 Ketorolac Tromethamine 15 Mg/Ml Vial IVPUSH 08/11/23 15:32 15 mg ONCE ONE Administration Medical Decision Making Lab Data 08/11/23 16:25 08/11/23 16:25 Labs: Lab Results 08/11/23 08/11/23 Range/Units 16:25 16:27 WBC 13.9 H (4.8-10.8) X10*3/uL RBC 4.03 L (4.20-5.50) X10*6/uL Hgb 13.2 (12.0-16.0) g/dl Hct 38.6 (37.0-47.0) % MCV 95.8 (80.0-98.0) fL MCH 32.8 (27.0-33.0) pg MCHC 34.2 (31.0-35.0) g/dl RDW 12.3 (11.0-16.0) % Plt Count 332 (160-400) X10*3/uL MPV 10.1 (9.4-12.3) fL Immature Gran % (Auto) 0.4 (0.0-0.4) % Neut % (Auto) 92.6 H (45-73) % Lymph % (Auto) 5.2 L (20-40) % Anderson % (Auto) 1.6 L (2-11) % Eos % (Auto) 0.0 (0-4) % Baso % (Auto) 0.2 (0-2) % Lymph # (Auto) 0.7 L (1.2-4.9) X10*3/uL Anderson # (Auto) 0.2 (0.1-1.2) X10*3/uL Eos # (Auto) 0.0 (0.0-0.4) X10*3/uL Baso # (Auto) 0.0 (0.0-0.2) X10*3/uL Abs Immat Gran (auto) 0.05 H (0.00-0.03) X10*3/uL Absolute Neuts (auto) 12.9 H (2.0-8.3) x10*3/uL Absolute Nucleated RBC 0.000 (0.0-0.012) X10*3/uL Nucleated RBC % (auto) 0.0 (0.0-0.2) /100WBC VBG pH 7.45 H (7.32-7.43) VBG pCO2 19 mmHg VBG pO2 82 mmHg VBG HCO3 13 L (22-26) mmol/L VBG O2 Saturation 98.0 % VBG Base Excess -7.4 mmol/L Sodium 140 (135-145) mmol/L Potassium 3.6 (3.3-5.1) mmol/L Chloride 112 H (96-108) mmol/L Carbon Dioxide 16 L (22-29) mmol/L Anion Gap 16 (12-20) BUN 10 (9-16) mg/dL Creatinine 0.83 (0.5-1.4) mg/dL Estim Creat Clear Calc 91.9 Estimated GFR > 60 Random Glucose 182 H (60-115) mg/dL Calcium 9.1 (8.4-10.2) mg/dL Total Bilirubin 0.4 (0.0-1.0) mg/dL Direct Bilirubin 0.1 (0.0-0.5) mg/dL AST 17 (5-31) U/L ALT 14 (0-31) U/L Alkaline Phosphatase 57 (39-117) U/L Troponin I High Sens < 2.7 (<3.5-17.0) ng/L Total Protein 7.0 (6.5-8.0) g/dL Albumin 3.9 (3.5-5.0) g/dL Lipase 15 (8-78) U/L Discharge Plan Discharge Clinical Impression: Shortness of breath Patient Disposition: Home, Self-Care Instructions: Bronchospasm (ED) Additional Instructions: As we discussed, you were seen today for shortness of breath and chest discomfort. Your CXR, EKG, and labs were reassuring. You were treated with Tylenol and Toradol for pain control. You received three breathing treatments. I suspect your shortness of breath is due to a mild bronchospasm of your breathing tube due to the recent intubation with the breathing tube. Your lungs are clear on exam and on XR. Your oxygen is 100%. Your surgery team has called prescriptions in to your pharmacy. Please follow up with your PCP and surgery team as previously scheduled. Return to the ED for further difficulty breathing, chest pain, or passing out. Prescriptions: No Action cholecalciferol (vitamin D3) 25 mcg (1,000 unit) tablet 25 mcg PO DAILY Qty: 90 0RF hydroxyzine HCl 25 mg tablet 25 mg PO TID PRN (Reason: anxiety) Qty: 84 0RF oxycodone-acetaminophen [Percocet] 5-325 mg tablet 1 tab PO Q4-6H PRN (Reason: pain) Qty: 25 0RF Rx Instructions: Partial Fill upon patient request. docusate sodium [Colace] 100 mg capsule 100 mg PO BID Qty: 60 2RF ibuprofen 600 mg tablet 600 mg PO Q6H PRN (Reason: pain) Qty: 30 0RF bupropion HCl 150 mg tablet sustained-release 12 hr 150 mg PO DAILY Qty: 30 2RF levothyroxine 100 mcg tablet 100 mcg PO DAILY Qty: 30 2RF Preparation H (Parker Vazquez) 50 % pads, medicated 1 pad topical BID PRN (Reason: skin irritation) Qty: 48 0RF
[2023-08-11 15:20] VITALS: BP 107/61; PULSE 114; RESP 20; O2SAT 97
[2023-08-11] MEDS: Acetaminophen 325 MG TABLET 975 MG PO (15:49)
[2023-08-11] MEDS: Ketorolac Tromethamine 15 MG/ML VIAL IVPUSH (15:49)
--- NOTE | 2023-08-11 15:54 | PC.NURSE ---
Medicated per mar, family at bedside. VSS, sinus tacy on monitor
[2023-08-11 16:30] LABS: Basophils Percent Auto 0.2 % (0-2); Hematocrit 38.6 % (37.0-47.0); Hemoglobin 13.2 g/dl (12.0-16.0); Imm Gran Abs Auto 0.05 X10*3/uL (0.00-0.03); Imm Gran Pct Auto 0.4 % (0.0-0.4); Lymphocytes Absolute Auto 0.7 X10*3/uL (1.2-4.9); Lymphocytes Percent Auto 5.2 % (20-40); MANUAL DIFF FLAG SCAN; Mean Corpuscular HGB Conc 34.2 g/dl (31.0-35.0); Mean Corpuscular Hemoglobin 32.8 pg (27.0-33.0); Mean Corpuscular Volume 95.8 fL (80.0-98.0); Mean Platelet Volume 10.1 fL (9.4-12.3); Monocytes Absolute Auto 0.2 X10*3/uL (0.1-1.2); Monocytes Percent Auto 1.6 % (2-11); Neutrophils Absolute Auto 12.9 x10*3/uL (2.0-8.3); Neutrophils Percent Auto 92.6 % (45-73); Platelet Count 332 X10*3/uL (160-400); Red Blood Count 4.03 X10*6/uL (4.20-5.50); Red Cell Distribution Width 12.3 % (11.0-16.0); SCAN SMEAR FLAG 1; White Blood Count 13.9 X10*3/uL (4.8-10.8)
[2023-08-11 16:31] LABS: Venous Blood Gas Refer to POC result
[2023-08-11 16:33] LABS: VBG Base Excess -7.4 mmol/L; VBG HCO3 13 mmol/L (22-26); VBG pCO2 19 mmHg; VBG pH 7.45 (7.32-7.43); VBG pO2 82 mmHg
[2023-08-11 16:44] LABS: Alanine Aminotransferase 14 U/L (0-31); Albumin Level 3.9 g/dL (3.5-5.0); Alkaline Phosphatase 57 U/L (39-117); Anion Gap 16 (12-20); Aspartate Amino Transferase 17 U/L (5-31); Bilirubin Direct 0.1 mg/dL (0.0-0.5); Bilirubin Total 0.4 mg/dL (0.0-1.0); Blood Urea Nitrogen 10 mg/dL (9-16); Calcium 9.1 mg/dL (8.4-10.2); Carbon Dioxide 16 mmol/L (22-29); Chloride 112 mmol/L (96-108); Creatinine Clr Calc Pharmacy 91.9; Estimated Glomerular Filt Rate > 60; Glucose Random 182 mg/dL (60-115); Lipase 15 U/L (8-78); Potassium 3.6 mmol/L (3.3-5.1); Sodium 140 mmol/L (135-145)
[2023-08-11 16:51] LABS: Troponin-I High Sensitivity < 2.7 ng/L (<3.5-17.0)
--- NOTE | 2023-08-11 17:04 | PC.NURSE ---
Continually ringing call juarez stating she needs an updraft, lungs clear. Respiratory called, who assessed patient. Provider stating patient does not require another updraft at this time. Sating 99% on 2 liters 02
[2023-08-11 17:40] LABS: SLIDE REVIEW VERIFIED
--- NOTE | 2023-08-11 17:46 | PC.RT ---
Ladi RN called in regards to the patient stating that she was having a hard time breathing. Upon arrival it was rather evident that the patient was anxiety ridden and working herself up. Sats remained at 98%, B/S were clear and she was forcing a wheeze in her upper airway. I asked Dr. Garrison if she would prefer I give the pt a treatment and she said no.
[2023-08-11 18:00] VITALS: PULSE 104; RESP 20; TEMP 37.1; O2SAT 98
== END 2023-08-11 18:47 | disposition home or self-care (01) ==
PROVIDERS: Emergency Provider Emergency Medicine
DX: R06.02 Shortness of breath (principal); Z79.899 Other long term (current) drug therapy
CPT/HCPCS: 36415; 80048; 80076; 82803; 83690; 84484; 85025; 93005; 99284; 99285; J1885

== ENCOUNTER → 2023-08-11 15:00 | Outpatient (BNV) | payer OTHER, SELFPAY | PROVIDERS: Emergency Provider Emergency Medicine; Visit Provider Internal Medicine | DX: R06.02 Shortness of breath (principal) | CPT/HCPCS: 93010 ==

== ENCOUNTER 2023-08-24 08:55 | Outpatient (AMB) | payer OTHER, SELFPAY ==
--- NOTE | 2023-08-24 08:57 | MHC.OFFVIS ---
Intake Intake Visit Reasons: S/P hemorrhoidectomy Intake Note: This patient presents for a post-op assessment status post hemorrhoidectomy. Patient c/o; reports pain, reports Percocet is not effective for the pain, reports no rectal bleeding. Surgery: 08/11/2023 Hemorrhoidectomy Financial Analysis Consultant Required: No Accompanied by: Self / Same As Patient Allergies morphine [Morphine] Allergy (Severe, Verified 08/24/23 09:04) HIVES HPI S/P hemorrhoidectomy HPI Details She underwent hemorrhoidectomy x2 columns last 08/11/2022. She tolerated the procedure well. She admits to significant pain postoperatively. She says that she still has pain now and has difficulty with sitting down. She denies significant bleeding. [facility] Medical History Hx of Hemorrhoids with complication Anxiety Major depression, recurrent Rosacea Vitamin D deficiency Hypothyroidism COVID-19 Cervical cancer screening Simple ovarian cyst Surgical History Hx of tonsillectomy Family History Paternal Aunt Breast cancer Father Stomach cancer Social History Housing: Apartment Alcohol intake: current Alcohol intake frequency: holidays/special occasions only Comment: Pt transfered to ED for evaluation and Tx of SOB and CP Patient Tobacco Use Status: Current someday Tobacco user e-Cigarette/Vaping Use: Never Used Second Hand Smoke Exposure: No Substance Use Type: Marijuana service: No Current occupational status: unemployed Gender identity: Female Cognitive needs: No Hearing needs: No Vision needs: Yes (glasses) Female Reproductive History Menstrual Age of Menarche: 9 Review of Systems Const Denies chills and Denies fever(s) Card Denies chest pain GI Denies abdominal pain Physical Exam Const Other: Ambulating but has pain General: no acute distress Resp Effort & Inspection: normal respiratory effort GI Other: Rectal exam shows hemorrhoidectomy sites to be healing but with surrounding edema of residual hemorrhoids, no induration, no discharge, no redness Assessment & Plan Assessment & Plan (1) External hemorrhoids: Code(s): K64.4 - Residual hemorrhoidal skin tags Plan: Status post hemorrhoidectomy. Her path report shows hemorrhoids. Her hemorrhoidectomy sites are actually healing well but she still has significant pain and tenderness. There has no evidence of infection. I will send her a prescription for lidocaine cream to help with her local pain. I am going to see her again in the office in about a month. She is to continue with hot Sitz baths. Coding Level of Care Code Global (75677) Diagnoses External hemorrhoids K64.4
== END 2023-08-24 09:15 | disposition home or self-care (01) ==
PROVIDERS: PCP Nurse Practitioner Family; Visit Provider Surgery
DX: K64.4 Residual hemorrhoidal skin tags (principal)
CPT/HCPCS: 99024

== ENCOUNTER → 2023-08-24 08:55 | Outpatient (BNVA) | payer OTHER, SELFPAY | PROVIDERS: PCP Nurse Practitioner Family; Visit Provider Surgery | DX: Z48.815 Encounter for surgical aftercare following surgery on the digestive system (principal) | CPT/HCPCS: 99212 ==

== ENCOUNTER 2023-09-06 16:36 | Outpatient (AMB) | payer OTHER, SELFPAY ==
[2023-09-06 16:38] VITALS: BP 110/64; BMI 29.2
--- NOTE | 2023-09-06 16:38 | A.OFFPC_ITS ---
Vital Signs 09/06/23 16:38 Height 5 ft 6 in Weight 181 lb BMI 29.2 BP 110/64 Blood Pressure Location Lt brachial Position Sitting Intake Visit Reasons: blood spots on inner thighs Intake Note: Patient here for blood spots on inner thighs Glass Driller Required: No Accompanied by: Self / Same As Patient Allergies morphine [Morphine] Allergy (Severe, Verified 09/06/23 16:51) HIVES Medication List - Last Reconciled 09/06/23 by Roxana Gonzales MD azelaic acid 15% topical DAILY bupropion HCl 150 mg PO DAILY cholecalciferol (vitamin D3) 25 mcg PO DAILY docusate sodium (Colace) 100 mg PO BID hydroxyzine HCl 25 mg PO TID PRN ibuprofen 600 mg PO Q6H PRN ketoconazole 2% 1 appl topical levothyroxine 100 mcg PO DAILY lidocaine 5% 1 appl topical TID PRN witch rahul 50% (Preparation H (Witch Rahul)) 1 pad topical BID PRN Tobacco use date assessed: 09/06/23 Dental Screening Dental Screen Date: 09/06/23 Did you have a dental visit in the last 12 months?: Yes Did you have a dental problem in the last 6 months where you did not have access to dental care?: No Was dental information given to patient?: Patient has dentist HPI HPI Comments History of Present Illness Details This is a 48-year-old female with hypothyroidism, recurrent major depression, anxiety and low vitamin-D that comes today complaining of redness in her thighs when she is standing that started few days ago. 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 Will be referred to Dermatology. TSH will be checked. Depression and anxiety stable with medications. On vitamin-D supplements for her low vitamin-D. [facility] Medical History (Updated 09/07/23 @ 12:14 by Roxana Gonzales MD) Hx of Hemorrhoids with complication Anxiety Major depression, recurrent Rosacea Vitamin D deficiency Hypothyroidism COVID-19 Cervical cancer screening Simple ovarian cyst Surgical History (Updated 09/06/23 @ 16:44 by AGUSTIN Pham) External hemorrhoids Hx of tonsillectomy Family History (Updated 09/06/23 @ 16:44 by Anamaris Khalil, RMA) Paternal Aunt Breast cancer Father Stomach cancer Social History Housing: Apartment Alcohol intake: current Alcohol intake frequency: holidays/special occasions only Comment: Pt transfered to ED for evaluation and Tx of SOB and CP Patient Tobacco Use Status: Former Tobacco user Tobacco use type: Cigarette e-Cigarette/Vaping Use: Never Used Second Hand Smoke Exposure: No Substance Use Type: Marijuana service: No Current occupational status: unemployed Gender identity: Female Cognitive needs: No Hearing needs: No Vision needs: Yes (glasses) Female Reproductive History Menstrual Age of Menarche: 9 Questionnaire PHQ-9 Over the last 2 weeks, how often have you been bothered by any of the following problems? 1. Little interest or pleasure in doing things: several days 2. Feeling down, depressed, or hopeless: nearly every day 3. Trouble falling or staying asleep, or sleeping too much: nearly every day 4. Feeling tired or having little energy: nearly every day 5. Poor appetite or overeating: several days 6. Feeling bad about yourself - or that you are a failure or have let yourself or your family down: not at all 7. Trouble concentrating on things, such as reading the newspaper or watching television: nearly every day 8. Moving or speaking so slowly that other people could have noticed. Or the opposite - being so fidgety or restless that you have been moving around a lot more than usual: nearly every day 9. Thoughts that you would be better off or of hurting yourself in some way: not at all Total score: 17 Depression Screening Interpretation: Positive Depression Screening Follow-up: Existing condition and In treatment Depression Screening Done: Yes 71302 - PHQ-9 Billing: Yes Source: Developed by Drs. Jesus Manuel Schuler, Yesenia Alcaraz, Alfonso Cannon and colleagues, with an educational matthew from [employer]. Thrive Questionnaire Date Thrive assessed: 09/06/23 I am a: Patient What is your living situation today?: I have a steady place to live Within the past 12 months, did the food you bought not last and you didn't have the money to get more?: Never true Within the past 12 months, did you worry whether your food would run out before you got money to buy more?: Never true Do you have trouble paying for medicines?: No Do you have trouble getting transportation to medical appointments?: No Do you have trouble paying your heating and electricity bill?: No Do you have trouble taking care of your child, family member or friend?: No Do you have trouble with day-to-day activities such as bathing, preparing meals, shopping, managing finances, etc.?: No Are you currently unemployed and looking for a job?: No Are you interested in more education?: No Please select the resources that you would like help with: None Currently or been in a relationship where the following occur: no concerns reported THRIVE Score: 0 AUDIT C Alcohol Use Questionnaire (AUDIT-C) 1. How often do you have a drink containing alcohol?: Never Total Score: 0 HAIDER-7 AMB Questionnaire HAIDER-7 Date HAIDER - 7 assessed: 09/06/23 Feeling nervous, anxious, or on edge: 3 = Nearly every day Not being able to stop or control worryin = Nearly every day Worrying too much about different things: 3 = Nearly every day Trouble relaxin = Nearly every day Being so restless that it is hard to sit still: 3 = Nearly every day Becoming easily annoyed or irritable: 3 = Nearly every day Feeling afraid as if something awful might happen: 1 = Several days Total HAIDER-7 score (0-4 normal; 5-9 mild; 10-14 moderate; 15-21 severe): 19 Source: Developed by Drs. Jesus Manuel Schuler, Yesenia Alcaraz, Alfonso Cannon and colleagues, with an educational matthew from [employer]. HAIDER-7 Assessment Billing HAIDER-7 Assessment Tool: HAIDER-7 Assessment 08009 Review of Systems Const All systems reviewed & are unremarkable except as noted in HPI and below Eyes Reports no additional complaints, Denies change in vision and Denies other visual disturbances Card Denies chest pain at rest, Denies chest pain with activity, Denies edema, Denies irregular heart rhythm, Denies claudication, Denies dyspnea, Denies dyspnea on exertion, Denies orthopnea, Denies paroxysmal nocturnal dyspnea and Denies slow heart rate Resp Denies cough, Denies dyspnea and Denies dyspnea on exertion GI Denies abdominal pain, Denies change in bowel habits, Denies excessive flatus, Denies nausea and Denies vomiting Denies urinary incontinence, Denies urinary hesitancy and Denies urinary urgency Musc Denies atrophy, Denies deformity and Denies limited range of motion Skin/Breast Denies bleeding lesions, Denies changing lesions, Reports nail changes and Denies rash Physical exam (Primary Care) Vital Signs: Last Vital Signs BP 110/64 09/06/23 16:38 BMI result Body Mass Index 29.2 Tobacco/Smoking Status: Tobacco use Status Tobacco use date assessed 09/06/23 09/06/23 16:45 Patient Tobacco Use Status Former Tobacco user 09/06/23 16:45 Tobacco use type Cigarette 09/06/23 16:45 e-Cigarette/Vaping Use Never Used 09/06/23 16:45 PHQ-9: PHQ-9 Score PHQ-9: Total score 17 09/07/23 12:25 Depression Screening Interpretation: Positive Depression Screening Follow-up: Existing condition and In treatment Thrive Assessment: Date of Thrive Assessment Date Thrive assessed 09/06/23 09/06/23 16:47 Currently or been in a relationship where the following occur: no concerns reported Eyes General: appearance normal, both eyes and all related structures Eyelids: Yes eyelids normal Conjunctivae: conjunctivae normal Neck Neck: Yes normal visual inspection and Yes supple Resp Effort & Inspection: normal respiratory effort Auscultation: clear to auscultation bilaterally Cardio Jugular venous distension: no JVD Rate: regular rate Rhythm: regular rhythm Heart sounds: S1 normal heart sound present and S2 normal heart sound present Skin Other: * Longitudinal lying in some finger nails Extrem General: Yes full ROM Assessment and Plan Assessment & Plan (1) Hypothyroidism: Code(s): E03.9 - Hypothyroidism, unspecified Qualifiers: 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 Monitor TSH. (2) Major depression, recurrent: Code(s): F33.9 - Major depressive disorder, recurrent, unspecified Qualifiers: Active/Remission status: currently active Major depression episode severity: mild Qualified Code(s): F33.0 - Major depressive disorder, recurrent, mild Plan: Continue bupropion. (3) Vitamin D deficiency: Code(s): E55.9 - Vitamin D deficiency, unspecified Plan: Continue vitamin-D supplements (4) Longitudinal melanonychia: Code(s): L60.8 - Other nail disorders Plan: Referred to dermatology. 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
== END 2023-09-06 17:02 | disposition home or self-care (01) ==
PROVIDERS: PCP Nurse Practitioner Family; Visit Provider Internal Medicine
DX: E03.8 Other specified hypothyroidism (principal); F33.0 Major depressive disorder, recurrent, mild; E06.3 Autoimmune thyroiditis; F41.9 Anxiety disorder, unspecified; E55.9 Vitamin D deficiency, unspecified; L60.8 Other nail disorders
CPT/HCPCS: 99214

== ENCOUNTER 2023-09-06 17:07 | Outpatient (REF) | payer OTHER, SELFPAY ==
[2023-09-06 17:16] LABS: MANUAL DIFF FLAG NO
[2023-09-06 17:47] LABS: Basophils Absolute Auto 0.1 X10*3/uL (0.0-0.2); Basophils Percent Auto 1.3 % (0-2); Eosinophils Absolute Auto 0.2 X10*3/uL (0.0-0.4); Eosinophils Percent Auto 3.1 % (0-4); Hematocrit 44.7 % (37.0-47.0); Hemoglobin 14.6 g/dl (12.0-16.0); Imm Gran Abs Auto 0.01 X10*3/uL (0.00-0.03); Imm Gran Pct Auto 0.2 % (0.0-0.4); Lymphocytes Absolute Auto 2.2 X10*3/uL (1.2-4.9); Lymphocytes Percent Auto 35.7 % (20-40); Mean Corpuscular HGB Conc 32.7 g/dl (31.0-35.0); Mean Corpuscular Hemoglobin 31.7 pg (27.0-33.0); Mean Corpuscular Volume 97.2 fL (80.0-98.0); Mean Platelet Volume 10.4 fL (9.4-12.3); Monocytes Absolute Auto 0.4 X10*3/uL (0.1-1.2); Monocytes Percent Auto 6.9 % (2-11); Neutrophils Absolute Auto 3.2 x10*3/uL (2.0-8.3); Neutrophils Percent Auto 52.8 % (45-73); Platelet Count 363 X10*3/uL (160-400); Red Cell Distribution Width 12.1 % (11.0-16.0); White Blood Count 6.1 X10*3/uL (4.8-10.8)
[2023-09-06 18:43] LABS: Iron 154 mcg/dL (30-160); Percent Iron Saturation 43 % (15-50); Total Iron Binding Capacity 361 mcg/dL (228-428); Unsaturated Iron Binding 207 ug/dL
[2023-09-06 19:00] LABS: Free T4 (Free Thyroxine) 0.65 ng/dL (0.71-1.85); Thyroid Stimulating Hormone 2.82 uIU/mL (0.32-4.0)
== END 2023-09-06 17:08 | disposition home or self-care (01) ==
LOC: HO.LAB 17:07
PROVIDERS: PCP Internal Medicine; Visit Provider Internal Medicine
DX: E55.9 Vitamin D deficiency, unspecified (principal); E03.9 Hypothyroidism, unspecified; D64.9 Anemia, unspecified
CPT/HCPCS: 36415; 82306; 83540; 84439; 84443; 85025

== ENCOUNTER 2023-09-21 12:59 | Outpatient (AMB) | payer OTHER, SELFPAY ==
--- NOTE | 2023-09-21 13:01 | A.OFFVIS_ITS ---
Intake Vital Signs 09/21/23 13:06 Height 5 ft 6 in Weight 180 lb BMI 29.0 Intake Visit Reasons: S/P hemorrhoidectomy, 1 mo follow up Intake Note: This patient presents for a one month follow-up assessment status post hemorrhoidectomy. Pt c/o; reports occasional pain, reports still having rectal bleeding. Belt Molder Required: No Accompanied by: Self / Same As Patient Allergies morphine [Morphine] Allergy (Severe, Verified 09/21/23 13:09) HIVES HPI S/P hemorrhoidectomy, 1 mo follow up HPI Details She is here for follow-up after hemorrhoidectomy last month. She says she still has some sharp pains especially after bowel movements. She also feels that her bowel movements are not regular. She denies any bleeding. She says she has not able to fully sit down comfortably for prolonged periods of time.. She says she has a lot of itching around the area as well. [facility] Medical History Hx of Hemorrhoids with complication Anxiety Major depression, recurrent Rosacea Vitamin D deficiency Hypothyroidism COVID-19 Cervical cancer screening Simple ovarian cyst Surgical History History of hemorrhoidectomy (~08/11/23) External hemorrhoids Hx of tonsillectomy Family History Paternal Aunt Breast cancer Father Stomach cancer Social History Housing: Apartment Alcohol intake: current Alcohol intake frequency: holidays/special occasions only Comment: Pt transfered to ED for evaluation and Tx of SOB and CP Patient Tobacco Use Status: Former Tobacco user Tobacco use type: Cigarette e-Cigarette/Vaping Use: Never Used Second Hand Smoke Exposure: No Substance Use Type: Marijuana service: No Current occupational status: unemployed Gender identity: Female Cognitive needs: No Hearing needs: No Vision needs: Yes (glasses) Female Reproductive History Menstrual Age of Menarche: 9 Review of Systems Const Denies chills and Denies fever(s) Card Denies chest pain Resp Denies cough Physical Exam Vital Signs: BMI result Body Mass Index 29.0 Const General: comfortable and no acute distress GI Other: Rectal exam shows hemorrhoidectomy sites to be healing well but with some edema of surrounding hemorrhoid tissue, no bleeding, no induration, no discharge Assessment & Plan Assessment & Plan (1) Hemorrhoids with complication: Code(s): K64.8 - Other hemorrhoids Plan: Status post hemorrhoidectomy. Her surgical site is actually healing well. She still complains of pain especially after bowel movements. She says that her bowel habits are irregular. I am going to send her prescription for Metamucil. I will start her on Calmoseptine as well because of her perianal itching. I will see her again in the office in about a month. Coding Level of Care Code Global (03370) Diagnoses Hemorrhoids with complication K64.8
[2023-09-21 13:06] VITALS: BMI 29.0
== END 2023-09-21 13:17 | disposition home or self-care (01) ==
PROVIDERS: PCP Nurse Practitioner Family; Visit Provider Surgery
DX: K64.8 Other hemorrhoids (principal)
CPT/HCPCS: 99024

== ENCOUNTER → 2023-09-21 12:59 | Outpatient (BNVA) | payer OTHER, SELFPAY | PROVIDERS: PCP Nurse Practitioner Family; Visit Provider Surgery | DX: Z48.815 Encounter for surgical aftercare following surgery on the digestive system (principal); Z98.890 Other specified postprocedural states | CPT/HCPCS: 99212 ==

== ENCOUNTER 2023-10-24 13:15 | Outpatient (REF) | payer OTHER, SELFPAY ==
[2023-10-25 02:44] LABS: CT PCR NOT DETECTED (Not Detect.); NG PCR NOT DETECTED (Not Detect.)
[2023-10-25 13:10] LABS: BV Int Neg Control Negative (Negative); BV Int Pos Control Positive (Positive)
[2023-10-31 04:18] LABS: HPV mRNA E6/E7 rflx Not Detected (Not Detected)
== END 2023-10-24 13:16 | disposition home or self-care (01) ==
LOC: HO.LAB 13:15
PROVIDERS: PCP Nurse Practitioner Family; Visit Provider Advanced Practice Midwife
DX: Z01.419 Encounter for gynecological examination (general) (routine) without abnormal findings (principal); N89.8 Other specified noninflammatory disorders of vagina; Z20.2 Contact with and (suspected) exposure to infections with a predominantly sexual mode of transmission; Z79.899 Other long term (current) drug therapy
CPT/HCPCS: 0353U; 87480; 87510; 87624; 87660; 88142; 99212

== ENCOUNTER 2023-10-24 13:15 | Outpatient (AMB) | payer OTHER, SELFPAY ==
--- NOTE | 2023-10-24 13:34 | MHC.OFFVIS ---
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 Team Assistant Required: No Information Interpreted: clinical only Statistical Clerk: Statistical Clerk Present Allergies morphine [Morphine] Allergy (Severe, Verified 10/24/23 13:37) HIVES Medication List - Last Reconciled 10/24/23 by Pearl Ellsworth CNM azelaic acid 15% topical DAILY bupropion HCl 150 mg PO DAILY cholecalciferol (vitamin D3) 25 mcg PO DAILY hydroxyzine HCl 25 mg PO TID PRN ketoconazole 2% 1 appl topical levothyroxine 100 mcg PO DAILY psyllium husk (Metamucil) 1 tbsp PO DAILY Is last menstrual period known: Yes Last menstrual period: 10/04/23 HPI 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 Additionally she feels like she always always always has BV and the smell is really bothersome to her she ran out of the Metrogel additionally she had these white hard and swellings in her vulvar area and saw dermatology for them and she said they remove them but she did not know what they were and she says she has more of them they are going to remove them and she extruded 1 herself and it smelled very very bad and she thinks it has a collection of just sweat glands that hardened up inside. She is bothered by her body odors all over and showers two or 3 or 4 times a day. She did not think her sense of smell altered when she had COVID. . She said her marriage broke up because of the problem with the odors. [facility] Medical History Hx of Hemorrhoids with complication Anxiety Major depression, recurrent Rosacea Vitamin D deficiency Hypothyroidism COVID-19 Cervical cancer screening Simple ovarian cyst Surgical History History of hemorrhoidectomy (~08/11/23) External hemorrhoids Hx of tonsillectomy Family History Paternal Aunt Breast cancer Father Stomach cancer Social History Housing: Apartment Alcohol intake: current Alcohol intake frequency: holidays/special occasions only Comment: Pt transfered to ED for evaluation and Tx of SOB and CP Patient Tobacco Use Status: Former Tobacco user Tobacco use type: Cigarette e-Cigarette/Vaping Use: Never Used Second Hand Smoke Exposure: No Substance Use Type: Marijuana service: No Current occupational status: unemployed Gender identity: Female Cognitive needs: No Hearing needs: No Vision needs: Yes (glasses) Female Reproductive History Menstrual Age of Menarche: 9 Duration of menses: 3-5 days Date of last menstrual period: 10/04/23 control method: none Total pregnancies: 3 Full term: 3 Date of last pap smear: 05/28/21 (neg. previous pap neg,2012) History of abnormal pap smear: No Physical Exam Vital Signs: Last Vital Signs BP 116/68 10/24/23 13:35 BMI result Body Mass Index 30.2 Const Other: Evidence of rosacea and tinea versicolor. Patient does have tiny little blackheads and areas that appear to be like whiteheads or tiny sebum collections around mons pubis but they are not excessive but she says they were mostly removed and these ones are planning to be removed by dermatology. Vagina is pink and moist cervix multiparous pink moist with multiple nabothian glands. Discharge appears clear and normal. Uterus midposition mobile nontender fairly good tone with General: healthy appearing, comfortable, no acute distress, well developed and alert Nutritional Appearance: average body habitus Orientation/consciousness: patient oriented x3 Limitations: no limitations HEENT Head: Yes normocephalic Neck Neck: Yes normal visual inspection Chest Chest palpation & inspection: normal inspection of the chest Breast/axilla inspection: normal inspection of the breasts and normal inspection of the axillae Breast/axilla palpation: normal palpation of the breasts and normal palpation of the axillae Resp Effort & Inspection: normal respiratory effort GI Inspection: Yes normal to inspection, No Abdominal wall edema and No distended Palpation (GI): Soft to palpation and nontender General: Yes bladder normal to palpation External Female Exam: normal external appearance and normal appearance of the urethra Speculum Exam - Vagina: normal appearance of the vagina, normal palpation and normal vaginal discharge Speculum Exam - Cervix: normal appearance of the cervix, normal palpation and nontender Bimanual exam- vagina & uterus: normal bimanual exam, normal palpation, uterine size normal, bladder normal to palpation, consistency normal, normal palpation, uterine mobility normal, uterine shape normal, No Cervical tenderness present, non-tender and no cervical motion tenderness Bimanual Exam- Adnexa, other: normal adnexae, no masses, normal and No adnexal tenderness Neuro General: patient oriented x3 Assessment & Plan Assessment & Plan (1) Cervical cancer screening: Comment: 05/28/21 pap= neg w neg hpv Code(s): Z12.4 - Encounter for screening for malignant neoplasm of cervix (2) Vaginal odor: Code(s): N89.8 - Other specified noninflammatory disorders of vagina (3) Breast cancer screening: Code(s): Z12.39 - Encounter for other screening for malignant neoplasm of breast (4) Screen for sexually transmitted diseases: Code(s): Z11.3 - Encounter for screening for infections with a predominantly sexual mode of transmission Plan 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 Additionally she feels like she always always always has BV and the smell is really bothersome to her she ran out of the Metrogel additionally she had these white hard and swellings in her vulvar area and saw dermatology for them and she said they remove them but she did not know what they were and she says she has more of them they are going to remove them and she extruded 1 herself and it smelled very very bad and she thinks it has a collection of just sweat glands that hardened up inside. She is bothered by her body odors all over and showers two or 3 or 4 times a day. She did not think her sense of smell altered when she had COVID. . She said her marriage broke up because of the problem with the odors. Discussed all of the above in great detail I discussed that I think along with her that this small little white slightly hardened lesions are subcutaneous collections of sebum or other sebaceous material and some women are plagued by them more than others but they should not be squeezed and removed is that simply causes more damage and risk of infection. She is going to be seeing Dermatology for it and if they treat them and remove them and send them for pathology and give her an answer as to exactly what they are called that would be a useful thing. She has already seen them before and says they remove many of them before but they were not sent for examination but she says that this time they are going to be sending them for testing. Discussed that not every body odor needs to be treated and we will wait for the results of this testing. Discussed that any time we eat anything or take it different medication it can impart a different odor to her body's. Discussed the possible changes that happen to her sense of smell but she did not think this was the case. Discussed that with bacterial vaginosis if it continually recurs with sexual activity the only solution is to have the partner use condoms. I told her I would refill her metronidazole gel so she could use a p.r.n. but to be careful about how she uses not use it all the time. 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 Orders: Orders MM tomosynthesis screening BI Today N89.8 - Other specified noninflammatory disorders of vagina, Z11.3 - Encounter for screening for infections with a predominantly sexual mode of transmission, Z12.31 - Encounter for screening mammogram for malignant neoplasm of breast, Z12.39 - Encounter for other screening for malignant neoplasm of breast, Z12.4 - Encounter for screening for malignant neoplasm of cervix Pap Smear Today Z01.419 - Encounter for gynecological examination (general) (routine) without abnormal findings CT NG by PCR Today Z01.419 - Encounter for gynecological examination (general) (routine) without abnormal findings Bacterial Vaginosis Panel Today Z20.2 - Contact with and (suspected) exposure to infections with a predominantly sexual mode of transmission Medications: Refilled metronidazole 0.75%(37.5mg/5gram) 1 appful vaginal BID 70 grams 2RF 5 days Coding Level of Care Code Est Pt Level 3 (03295) Diagnoses Cervical cancer screening Z12.4 Vaginal odor N89.8 Breast cancer screening Z12.39 Screen for sexually transmitted diseases Z11.3 Time Spent (min) 35 Comment 100% of time spent discussing patient's symptoms in detail along with exam.
[2023-10-24 13:35] VITALS: BP 116/68; BMI 30.2
== END 2023-10-24 14:55 | disposition home or self-care (01) ==
PROVIDERS: PCP Nurse Practitioner Family; Visit Provider Advanced Practice Midwife
DX: Z12.4 Encounter for screening for malignant neoplasm of cervix (principal); N89.8 Other specified noninflammatory disorders of vagina; Z12.39 Encounter for other screening for malignant neoplasm of breast; Z11.3 Encounter for screening for infections with a predominantly sexual mode of transmission
CPT/HCPCS: 99213

== ENCOUNTER 2023-11-15 14:51 | Outpatient (REF) | payer OTHER, SELFPAY ==
--- NOTE | ~2023-11-15 | MM_ITS ---
EXAMINATION: MM SCREENING DIGITAL BREAST TOMOSYNTHESIS, BILATERAL CLINICAL INFORMATION: Screening. Asymptomatic. COMPARISON: Mammography: 07/01/2021. 07/18/2013. TECHNIQUE: Digital breast tomosynthesis is performed in both the craniocaudal and mediolateral oblique views along with computer-aided detection (CAD). Synthesized 2D images are generated from the tomosynthesis. FINDINGS: There are scattered areas of fibroglandular density (ACR BI-RADS breast composition Category b). There are no suspicious masses, suspicious grouped calcifications, or areas of architectural distortion in either breast. The parenchymal pattern is stable from prior exams. No skin or axillary abnormality. MM/MM tomosynthesis screening BI IMPRESSION: No mammographic evidence of malignancy. No significant change. ASSESSMENT: BI-RADS BI-RADS 1 - Negative RECOMMENDATION: Routine annual mammography screening. 1 year F/U This examination should not preclude the clinical evaluation of a suspicious palpable abnormality. This patient's information was entered into a reminder system with a target due date for their next mammogram.
== END 2023-11-15 14:52 | disposition home or self-care (01) ==
LOC: HO.MAMMO 14:51
PROVIDERS: PCP Internal Medicine; Visit Provider Advanced Practice Midwife
DX: Z12.31 Encounter for screening mammogram for malignant neoplasm of breast (principal)
CPT/HCPCS: 77063; 77067

== ENCOUNTER → 2023-11-15 15:00 | Outpatient (BNV) | payer OTHER, SELFPAY | PROVIDERS: PCP Internal Medicine; Visit Provider Radiology Diagnostic Radiology | DX: Z12.31 Encounter for screening mammogram for malignant neoplasm of breast (principal) | CPT/HCPCS: 77063; 77067 ==

== ENCOUNTER 2023-12-20 14:03 | Outpatient (AMB) | payer OTHER, SELFPAY ==
--- NOTE | 2023-12-20 16:00 | MHC.OFFWIV ---
Intake Vital Signs 12/20/23 16:01 Height 5 ft 6 in BP 120/74 Blood Pressure Location Rt brachial Position Sitting Pulse 80 Pulse Source Pulse Oximeter Temp 98.4 F Temp Source Oral Pulse Oximetry (%) 98 Oxygen Delivery Method Room Air Intake Visit Reasons: Est/ chest congestion(trouble breathing (l masked) Intake Note: pt is here for chest congestion, trouble breathing. pcp wants chest xray Patient Tobacco Use Status: Former Tobacco user Allergies morphine [Morphine] Allergy (Severe, Verified 12/20/23 16:01) HIVES Do you need a note to return to daycare/school/sports/work: No HPI HPI Comments History of Present Illness Details 48 y/o female patient who presents to walk in clinic with c/o chest congestion and SOB. Reports that the cough has been ongoing for 7 months. Pt has h/o Asthma and allergic rhinitis. [facility] Medical History Hx of Hemorrhoids with complication Anxiety Major depression, recurrent Rosacea Vitamin D deficiency Hypothyroidism COVID-19 Cervical cancer screening Simple ovarian cyst Surgical History History of hemorrhoidectomy (~08/11/23) External hemorrhoids Hx of tonsillectomy Family History Paternal Aunt Breast cancer Father Stomach cancer Social History Housing: Apartment Alcohol intake: current Alcohol intake frequency: holidays/special occasions only Comment: Pt transfered to ED for evaluation and Tx of SOB and CP Patient Tobacco Use Status: Former Tobacco user Tobacco use type: Cigarette e-Cigarette/Vaping Use: Never Used Second Hand Smoke Exposure: No Substance Use Type: Marijuana service: No Current occupational status: unemployed Gender identity: Female Cognitive needs: No Hearing needs: No Vision needs: Yes (glasses) Female Reproductive History Menstrual Age of Menarche: 9 Review of Systems Const All systems reviewed & are unremarkable except as noted in HPI and below Physical Exam Vital Signs: Last Vital Signs Temp 98.4 F 12/20/23 16:01 Pulse 80 12/20/23 16:01 BP 120/74 12/20/23 16:01 Pulse Ox 98 12/20/23 16:01 Oxygen Delivery Method Room Air 05/29/24 16:01 Const General: comfortable and no acute distress Orientation/consciousness: patient oriented x3 HEENT Head: Yes normocephalic Ears: external ears normal and TM's normal bilaterally Face and sinus: Yes sinuses nontender Mouth: moist mucous membranes Throat: Yes posterior oropharynx normal Resp Effort & Inspection: normal respiratory effort and able to speak in complete sentences Auscultation: clear to auscultation bilaterally, no crackles, no rales, no rhonchi and no wheezes Cardio Rate: regular rate Rhythm: regular rhythm Neuro General: patient oriented x3, gait normal and moves all extremities Psych Speech and movement: Normal speech and movement present Assessment & Plan Assessment & Plan (1) Cough in adult: Code(s): R05.9 - Cough, unspecified Plan: - Chest Xray - Will Tx with Abx Empirically - Rest Orders: Orders XR chest 2V Today R05.9 - Cough, unspecified Medications: New benzonatate 100 mg PO TID 30 caps 0RF R05.9 - Cough, unspecified prednisone 50 mg PO DAILY 5 days 5 tabs 0RF R05.9 - Cough, unspecified guaifenesin (Wal-Tussin) 200 mg (10 mL) PO Q4H PRN 473 mL 0RF cough R05.9 - Cough, unspecified doxycycline hyclate 100 mg PO BID 10 days 20 caps 0RF R05.9 - Cough, unspecified Coding Level of Care Code Est Pt Level 4 (08034) Diagnoses Cough in adult R05.9 Time Spent (min) 20
[2023-12-20 16:01] VITALS: BP 120/74; PULSE 80; TEMP 36.9; O2SAT 98
== END 2023-12-20 17:07 | disposition home or self-care (01) ==
PROVIDERS: PCP Internal Medicine; Visit Provider Nurse Practitioner Family
DX: R05.9 Cough, unspecified (principal)
CPT/HCPCS: 99214

== ENCOUNTER 2023-12-20 16:44 | Outpatient (REF) | payer OTHER, SELFPAY ==
--- NOTE | ~2023-12-20 | XR_ITS ---
EXAMINATION: XR CHEST CLINICAL INFORMATION: Cough COMPARISON: 08/11/2023 TECHNIQUE: 2 views of the chest were obtained. FINDINGS: No significant abnormality is noted involving the heart, lungs, mediastinum, bony thorax or soft tissues. Compared with the prior study there's been no interval change aside from the fact that the lungs are now well expanded. XR/XR chest 2V IMPRESSION: Unremarkable examination.
== END 2023-12-20 16:45 | disposition home or self-care (01) ==
LOC: HO.HMGCX 16:44
PROVIDERS: PCP Internal Medicine; Visit Provider Nurse Practitioner Family
DX: R05.9 Cough, unspecified (principal)
CPT/HCPCS: 71046

== ENCOUNTER 2024-01-22 16:39 | Outpatient (AMB) | payer OTHER, SELFPAY ==
[2024-01-22 16:44] VITALS: BP 126/82; PULSE 78; O2SAT 99; BMI 30.2
--- NOTE | 2024-01-22 16:44 | MHC.PC.OV ---
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 Accompanied by: Self / Same As Patient Is last menstrual period known: Yes Last menstrual period: 12/30/23 Allergies morphine [Morphine] Allergy (Severe, Verified 01/22/24 17:05) HIVES Medication List - Last Reconciled 01/22/24 by Roxana Gonzales MD azelaic acid 15% topical DAILY bupropion HCl SR 150 mg PO DAILY cholecalciferol (vitamin D3) 25 mcg PO DAILY guaifenesin (Wal-Tussin) 200 mg (10 mL) PO Q4H PRN hydroxyzine HCl 25 mg PO TID PRN ketoconazole 2% 1 appl topical levothyroxine 100 mcg PO DAILY metronidazole 0.75%(37.5mg/5gram) 1 appful vaginal BID 5 days prednisone 50 mg PO DAILY 5 days psyllium husk (Metamucil) 1 tbsp PO DAILY Tobacco use date assessed: 09/06/23 Dental Screening Dental Screen Date: 09/06/23 HPI HPI Comments History of Present Illness Details This is a 48-year-old female with moderate recurrent major depression that comes for her physical exam. Depression still present with Wellbutrin and she does have insomnia therefore I will change it to escitalopram at bedtime. Mammogram done 2023 and was normal. Pap smear done 2023 and was normal. Will be referred to colonoscopy through open access. No acute complaints. [facility] Medical History (Updated 01/22/24 @ 17:19 by Roxana Gonzales MD) Hx of Hemorrhoids with complication Anxiety Major depression, recurrent Rosacea Vitamin D deficiency Hypothyroidism COVID-19 Cervical cancer screening Simple ovarian cyst Surgical History History of hemorrhoidectomy (~08/11/23) External hemorrhoids Hx of tonsillectomy Family History Paternal Aunt Breast cancer Father Stomach cancer Social History Housing: Apartment Alcohol intake: current Alcohol intake frequency: holidays/special occasions only Comment: Pt transfered to ED for evaluation and Tx of SOB and CP Patient Tobacco Use Status: Former Tobacco user Tobacco use type: Cigarette e-Cigarette/Vaping Use: Never Used Second Hand Smoke Exposure: No Substance Use Type: Marijuana service: No Current occupational status: unemployed Gender identity: Female Cognitive needs: No Hearing needs: No Vision needs: Yes (glasses) Female Reproductive History Menstrual Age of Menarche: 9 Date of last menstrual period: 12/30/23 Questionnaire Thrive Questionnaire Date Thrive assessed: 09/06/23 AUDIT C Alcohol Use Questionnaire (AUDIT-C) 1. How often do you have a drink containing alcohol?: Monthly or less 2. How many drinks containing alcohol do you have on a typical day when you are drinking?: 1 or 2 3. How often do you have six or more drinks on one occasion?: Never Total Score: 1 Score Reviewed/Action Taken: No HAIDER-7 AMB Questionnaire HAIDER-7 Date HAIDER - 7 assessed: 09/06/23 Source: Developed by Drs. Jesus Manuel Schuler, Yesenia Alcaraz, Alfonso Cannon and colleagues, with an educational matthew from [employer]. Review of Systems Const All systems reviewed & are unremarkable except as noted in HPI and below Card Denies chest pain at rest, Denies chest pain with activity, Denies edema, Denies irregular heart rhythm, Denies claudication, Denies dyspnea, Denies dyspnea on exertion, Denies orthopnea, Denies paroxysmal nocturnal dyspnea and Denies slow heart rate Resp Denies cough, Denies dyspnea and Denies dyspnea on exertion GI Denies abdominal pain, Denies change in bowel habits, Denies excessive flatus, Denies nausea and Denies vomiting Denies urinary incontinence, Denies urinary hesitancy and Denies urinary urgency Musc Denies atrophy, Denies deformity and Denies limited range of motion Physical exam (Primary Care) Vital Signs: Last Vital Signs Pulse 78 01/22/24 16:44 BP 126/82 01/22/24 16:44 Pulse Ox 99 01/22/24 16:44 Oxygen Delivery Method Room Air 01/22/24 16:44 BMI result Body Mass Index 30.2 Tobacco/Smoking Status: Tobacco use Status Tobacco use date assessed 09/06/23 01/22/24 16:44 Patient Tobacco Use Status Former Tobacco user 01/22/24 16:44 Tobacco use type Cigarette 01/22/24 16:44 e-Cigarette/Vaping Use Never Used 01/22/24 16:44 Thrive Assessment: Date of Thrive Assessment Date Thrive assessed 09/06/23 01/22/24 16:44 Const Orientation/consciousness: patient oriented x3 HENMT Head: Yes normal to inspection, Yes normocephalic and Yes atraumatic Ears: external ears normal Eyes General: appearance normal, both eyes and all related structures Eyelids: Yes eyelids normal Conjunctivae: conjunctivae normal Neck Neck: Yes normal visual inspection and Yes supple Resp Effort & Inspection: normal respiratory effort Auscultation: clear to auscultation bilaterally Cardio Jugular venous distension: no JVD Rate: regular rate Rhythm: regular rhythm Heart sounds: S1 normal heart sound present and S2 normal heart sound present GI Inspection: Yes normal to inspection Palpation (GI): Soft to palpation and nontender Auscultation: normal bowel sounds Skin General skin exam: no rashes or lesions noted Neuro General: patient oriented x3 and no focal motor deficits Extrem General: Yes full ROM Psych Appearance: grossly normal Assessment and Plan Assessment & Plan (1) Physical exam: Code(s): Z00.00 - Encounter for general adult medical examination without abnormal findings Plan: Repeat in a year. (2) Major depression, recurrent: Code(s): F33.9 - Major depressive disorder, recurrent, unspecified Qualifiers: Active/Remission status: currently active Major depression episode severity: mild Qualified Code(s): F33.0 - Major depressive disorder, recurrent, mild Plan: Discontinue Wellbutrin. Start escitalopram at bedtime. Orders: Orders Vitamin D 25-OH Total Today E55.9 - Vitamin D deficiency, unspecified Vitamin B12 and Folate Today E53.8 - Deficiency of other specified B group vitamins Hepatitis B,C Profile Today Z11.3 - Encounter for screening for infections with a predominantly sexual mode of transmission AMB HCG Urine Test Today Z32.02 - Encounter for test, result negative Thyroid Stimulating Hormone Today E03.8 - Other specified hypothyroidism, E06.3 - Autoimmune thyroiditis Comprehensive [place]. Panel Fast Today Z00.00 - Encounter for general adult medical examination without abnormal findings Lipid Panel Today Z00.00 - Encounter for general adult medical examination without abnormal findings HIV Ab/Ag Today Z11.3 - Encounter for screening for infections with a predominantly sexual mode of transmission CT NG by PCR Today Z11.3 - Encounter for screening for infections with a predominantly sexual mode of transmission Syphilis Screen Today Z11.3 - Encounter for screening for infections with a predominantly sexual mode of transmission Referrals Counseling Referral F33.9 - Major depressive disorder, recurrent, unspecified, F41.9 - Anxiety disorder, unspecified Open Access Screening Colonoscopy Referral Z12.11 - Encounter for screening for malignant neoplasm of colon Medications: New escitalopram oxalate 10 mg PO BEDTIME 90 days 90 tabs 1RF F33.0 - Major depressive disorder, recurrent, mild, G47.00 - Insomnia, unspecified Discontinued bupropion HCl SR Discontinued Reason: Patient Completed Course 150 mg PO DAILY 30 tabs 2RF F33.9 - Major depressive disorder, recurrent, unspecified Coding Level of Care Code Est Pt Prev Care 40-64y(17409) Diagnoses Physical exam Z00.00 Mild episode of recurrent major depressive disorder F33.0 Active/Remission status: currently active Major depression episode severity: mild Time Spent (min) 32
== END 2024-01-22 17:16 | disposition home or self-care (01) ==
PROVIDERS: PCP Nurse Practitioner Family; Visit Provider Internal Medicine
DX: Z00.00 Encounter for general adult medical examination without abnormal findings (principal); F33.0 Major depressive disorder, recurrent, mild
CPT/HCPCS: 99396

== ENCOUNTER 2024-01-23 14:47 | Outpatient (REF) | payer OTHER, SELFPAY ==
[2024-01-23 16:22] LABS: Alanine Aminotransferase 11 U/L (0-31); Albumin Level 4.1 g/dL (3.5-5.0); Alkaline Phosphatase 64 U/L (39-117); Anion Gap 9 (12-20); Aspartate Amino Transferase 15 U/L (5-31); Bilirubin Total 0.6 mg/dL (0.0-1.0); Blood Urea Nitrogen 6 mg/dL (9-16); Carbon Dioxide 25 mmol/L (22-29); Chloride 108 mmol/L (96-108); Cholesterol 202 mg/dL (<200); Estimated Glomerular Filt Rate > 60; Glucose Fasting 94 mg/dL (60-99); HDL Cholesterol 58 mg/dL (>40); LDL Cholesterol Calculated 125 mg/dL (<100); Potassium 3.4 mmol/L (3.3-5.1); Sodium 139 mmol/L (135-145); Triglycerides 97 mg/dL (<150)
[2024-01-23 16:38] LABS: Thyroid Stimulating Hormone 5.12 uIU/mL (0.32-4.0); Vitamin D 25-OH Total 22.9 ng/mL (>30)
[2024-01-23 16:52] LABS: Folate 12.2 ng/mL (> or = 4.0); Vitamin B12 414 pg/mL (200-900)
[2024-01-24 08:17] LABS: HBS Num1 2.88 mIU/mL (0-7.99); HBc Num1 0.06 S/CO (0.00-0.79); HBsAGNum1 0.24 S/CO (0.00-0.99); HIV AB/AG Nonreactive (Nonreactive); HIV Num 1 0.05 S/CO (0.00-0.99); Hepatitis B Core Antibody Nonreactive (Nonreactive); Hepatitis B Surface Antigen Negative (Negative); ~HepC Num1 0.18 S/CO (0.00-0.79); ~Hepatitis B Surface Antibody NONREACTIVE (Nonreactive); ~Hepatitis C Antibody Nonreactive (Nonreactive)
[2024-01-24 08:18] LABS: Syphilis Screen Nonreactive (Nonreactive)
== END 2024-01-23 14:48 | disposition home or self-care (01) ==
LOC: HO.LAB 14:47
PROVIDERS: PCP Internal Medicine; Visit Provider Internal Medicine
DX: Z00.00 Encounter for general adult medical examination without abnormal findings (principal); E06.3 Autoimmune thyroiditis; E03.8 Other specified hypothyroidism; Z11.3 Encounter for screening for infections with a predominantly sexual mode of transmission; E53.8 Deficiency of other specified B group vitamins; E55.9 Vitamin D deficiency, unspecified
CPT/HCPCS: 80053; 80061; 82306; 82607; 82746; 84443; 86704; 86706; 86780; 86803; 87340; 87389

== ENCOUNTER 2024-01-23 15:30 | Outpatient (REF) | payer OTHER, SELFPAY ==
[2024-01-25 05:43] LABS: CT PCR NOT DETECTED (Not Detect.); NG PCR NOT DETECTED (Not Detect.)
== END 2024-01-23 15:31 | disposition home or self-care (01) ==
LOC: HO.LNP 15:30
PROVIDERS: Visit Provider Internal Medicine
DX: Z11.3 Encounter for screening for infections with a predominantly sexual mode of transmission (principal)
CPT/HCPCS: 87491; 87591

== ENCOUNTER 2024-01-30 13:32 | Outpatient (REF) | payer OTHER, SELFPAY ==
[2024-01-30 14:12] LABS: UPreg QC Valid YES; Urine Pregnancy NEGATIVE (NEGATIVE)
== END 2024-01-30 13:33 | disposition home or self-care (01) ==
LOC: HO.LAB 13:32
PROVIDERS: PCP Internal Medicine; Visit Provider Internal Medicine
DX: N89.8 Other specified noninflammatory disorders of vagina (principal)
CPT/HCPCS: 81025

== ENCOUNTER 2024-08-04 13:59 | Emergency (ER) | payer OTHER, SELFPAY ==
--- NOTE | ~2024-08-04 | CT_ITS ---
CLINICAL HISTORY: severe R headache, eye pain CT head without contrast Comparison: CT/CT/SR - CT HEAD/BRAIN WO CON - 07/28/21 19:44 EST Findings: No intra-axial mass, midline shift, hydrocephalus, or acute hemorrhage. No significant atrophy-like change or white matter disease. The visualized paranasal sinuses and mastoid air cells are normal. The orbits are unremarkable. There is no acute fracture. IMPRESSION: 1. No acute intracranial findings This document has been electronically signed by: Louise Cole MD on 08/04/2024 16:39:31
[2024-08-04 14:51] VITALS: BP 131/72; PULSE 66; RESP 20; TEMP 36.6; O2SAT 99; BMI 31.0
--- NOTE | 2024-08-04 14:51 | ED_ITS ---
HPI - General Adult General Chief complaint: Headache Stated complaint: Blurry vision R eye, headache Time Seen by Provider: 08/04/24 20:01 Source: patient Limitations: no limitations History of Present Illness ED Provider: Iwona Bazzi PA-C HPI narrative: 49-year-old female presents with right eye pain x1 day. Patient states she started to feel as if her eye was irritated yesterday, she woke this morning with significant swelling and redness of the right upper lid. Patient has a foreign body sensation of the right eye. Denies exposure to projectile or sick contacts with similar symptoms. Patient states she has developed nasal congestion and sneezing over the past day. Patient also notes that her left eye is starting to become irritated along the lower margin of the eyeball. Patient is not diabetic and does not wear contact lenses. Related Data Home Medications ?Medication ?Instructions ?Recorded ?Confirmed azelaic acid 15 % topical gel topical DAILY 09/06/23 01/22/24 ketoconazole 2 % topical cream 1 appl topical 09/06/23 01/22/24 psyllium husk 3.4 gram/5.4 gram 1 tbsp PO DAILY 10/24/23 01/22/24 oral powder (Metamucil) Previous Rx's ?Medication ?Instructions ?Recorded hydroxyzine HCl 25 mg tablet 25 mg PO TID PRN anxiety #84 tabs 06/02/23 cholecalciferol (vitamin D3) 25 25 mcg PO DAILY #90 tabs 09/15/23 mcg (1,000 unit) tablet metronidazole 0.75 % (37.5 mg/5 1 appful vaginal BID 5 days #70 10/24/23 gram) vaginal gel grams guaifenesin 100 mg/5 mL oral 200 mg (10 mL) PO Q4H PRN cough 12/20/23 liquid (Wal-Tussin) #473 mL prednisone 50 mg tablet 50 mg PO DAILY 5 days #5 tabs 12/20/23 escitalopram oxalate 10 mg tablet 10 mg PO BEDTIME 90 days #90 tabs 01/22/24 levothyroxine 112 mcg tablet 112 mcg PO DAILY 90 days #90 tabs 04/27/24 erythromycin 5 mg/gram (0.5 %) eye 0.5 inch ophthalmic (eye) TID 5 08/04/24 ointment days #3.5 grams ketorolac 0.4 % eye drops 1 drp ophthalmic (eye) QID PRN 08/04/24 pain #5 mL Allergies Allergy/AdvReac Type Severity Reaction Status Date / Time morphine [Morphine] Allergy Severe HIVES Verified 08/04/24 14:55 Review of Systems 2 Review of Systems: Yes all other systems are reviewed and are negative Constitutional: Constitutional: Denies fatigue and Denies fever(s) Eyes: Eyes: Reports eye discharge, Reports irritation and Reports eye pain Cardiovascular: Cardiovascular: Denies chest pain and Denies dyspnea Respiratory: Respiratory: Denies cough and Denies dyspnea Gastrointestinal: Gastrointestinal: Denies nausea Endocrine: Endocrine: Denies fatigue PMFSH Past Medical History Attestation statement: The following information was validated with the patient. Medical History Hx of Hemorrhoids with complication Anxiety Major depression, recurrent Rosacea Vitamin D deficiency Hypothyroidism COVID-19 Cervical cancer screening Simple ovarian cyst Surgical History History of hemorrhoidectomy (~08/11/23) External hemorrhoids Hx of tonsillectomy Family History Family History Paternal Aunt Breast cancer Father Stomach cancer Social History Social History Housing: Apartment Alcohol intake: current Alcohol intake frequency: holidays/special occasions only Comment: Pt transfered to ED for evaluation and Tx of SOB and CP Patient Tobacco Use Status: Former Tobacco user Tobacco use type: Cigarette e-Cigarette/Vaping Use: Never Used Second Hand Smoke Exposure: No Substance Use Type: Marijuana Advance Directives: No Advance Directives Information Provided: No Do you have a plan to hurt others: No Plan service: No Current occupational status: unemployed Gender identity: Female Cognitive needs: No Hearing needs: No Vision needs: Yes (glasses) Physical Exam ED Vital Signs: Vital Signs - 24 hr 08/04/24 14:51 08/04/24 19:38 Temperature 97.9 F 97.3 F Pulse Rate 66 58 Respiratory Rate 20 18 Blood Pressure 131/72 123/64 Pulse Oximetry 99 100 Oxygen Delivery Method Room Air Room Air BMI result Body Mass Index 31.0 Const Other: Alert Orientation/consciousness: patient oriented x3 Eyes Other: Mild bulbar conjunctival injection of the right eye, small region of vulvar conjunctival injection of the left line along the lower margins of the globe. The right upper lid is swollen and erythematous, there is a single hordeolum along the inner upper lid margin. With fluorescein stain, there is no corneal abrasion or ulceration of the right globe Resp Effort & Inspection: normal respiratory effort Cardio Other: Normal peripheral perfusion Skin Other: Warm dry no rash Neuro General: patient oriented x3, no focal motor deficits and CN's II-XI intact bilaterally Psych Other: Calm cooperative Course Course Course Narrative: This is an RME performed by Leobardo Ernst CNP: Additional HPI, ROS, PE not included below will be deferred to primary provider. Patient is a 49-year-old female who presents emergency department for evaluation. She reports last night sudden onset severe sharp pain to the right side of the head she got extremely dizzy, nearly syncopized at down on the couch, then vomited. When she awoke this morning she had swelling to the right eye severe pain to the right side of her face, a muffled sound to the ear, rhinorrhea, and blurry vision. She endorses a very mild headache to the right side at this time. Exam: No focal neurological deficits, NIH stroke score 0. Right external canal without abnormality or vesicles. No AROM. Has hordeolum to the right upper lid, will require visual acuity in addition to fluorescein staining to assess for corneal abrasion Plan: CT head, viral serologies, see narrative above Medications Administered Discontinued Medications Generic Name Dose Route Start Last Admin Trade Name Chinmayq PRN Reason Stop Dose Admin Erythromycin 1 cm 08/04/24 20:33 08/04/24 20:57 Erythromycin Base 0.5% Oph Oin 1 Gm Tube EYE-BOTH 08/04/24 20:34 1 cm ONCE ONE Administration Fluorescein Sodium 1 strip 08/04/24 20:09 08/04/24 20:57 Fluorescein Sodium Strip EYE-BOTH 08/04/24 20:10 1 strip ONCE ONE Administration Tetracaine HCl 3 drop 08/04/24 20:09 08/04/24 20:58 Tetracaine Hcl 0.5% Oph Whitney 5 Ml Drops EYE-BOTH 08/04/24 20:10 3 drop ONCE ONE Administration Medical Decision Making Medical Decision Making [facility] Narrative: 49-year-old female presents with right eye pain x1 day. Patient states she started to feel as if her eye was irritated yesterday, she woke this morning with significant swelling and redness of the right upper lid. Patient has a foreign body sensation of the right eye. Denies exposure to projectile or sick contacts with similar symptoms. Patient states she has developed nasal congestion and sneezing over the past day. Patient also notes that her left eye is starting to become irritated along the lower margin of the eyeball. Patient is not diabetic and does not wear contact lenses. No chronic issues History: Per patient I have considered the following differential diagnoses: Conjunctivitis, blepharitis, chalazion, hordeolum, foreign body, corneal abrasion/ulcer Plan: Upon thorough exam of the eye, she has bilateral conjunctivitis with a single hordeolum of the right upper lid. We will treat with the erythromycin and ketorolac drops, she has no risk factors for Pseudomonas. She can follow up with the primary care provider this week. To note labs and imaging were obtained from triage. I have independently reviewed the following tests: Labs: No leukocytosis, not anemic, no electrolyte abnormality noted, viral panel negative CT head: Findings: No intra-axial mass, midline shift, hydrocephalus, or acute hemorrhage. No significant atrophy-like change or white matter disease. The visualized paranasal sinuses and mastoid air cells are normal. The orbits are unremarkable. There is no acute fracture. IMPRESSION: 1. No acute intracranial findings This document has been electronically signed by: Louise Cole MD on 08/04/2024 16:39:31 Lab Data 08/04/24 15:06 08/04/24 15:06 Labs: Lab Results 08/04/24 Range/Units 15:06 WBC 5.6 (4.8-10.8) X10*3/uL RBC 4.22 (4.20-5.50) X10*6/uL Hgb 13.8 (12.0-16.0) g/dl Hct 42.1 (37.0-47.0) % MCV 99.8 H (80.0-98.0) fL MCH 32.7 (27.0-33.0) pg MCHC 32.8 (31.0-35.0) g/dl RDW 12.2 (11.0-16.0) % Plt Count 335 (160-400) X10*3/uL MPV 10.6 (9.4-12.3) fL Immature Gran % (Auto) 0.4 (0.0-0.4) % Neut % (Auto) 52.2 (45-73) % Lymph % (Auto) 31.1 (20-40) % Galax % (Auto) 9.4 (2-11) % Eos % (Auto) 5.3 H (0-4) % Baso % (Auto) 1.6 (0-2) % Lymph # (Auto) 1.8 (1.2-4.9) X10*3/uL Galax # (Auto) 0.5 (0.1-1.2) X10*3/uL Eos # (Auto) 0.3 (0.0-0.4) X10*3/uL Baso # (Auto) 0.1 (0.0-0.2) X10*3/uL Abs Immat Gran (auto) 0.02 (0.00-0.03) X10*3/uL Absolute Neuts (auto) 2.9 (2.0-8.3) x10*3/uL Absolute Nucleated RBC 0.000 (0.0-0.012) X10*3/uL Nucleated RBC % (auto) 0.0 (0.0-0.2) /100WBC ESR 14 (0-20) MM/HR Sodium 143 (135-145) mmol/L Potassium 4.1 D (3.3-5.1) mmol/L Chloride 111 H (96-108) mmol/L Carbon Dioxide 26 (22-29) mmol/L Anion Gap 10 L (12-20) BUN 12 (9-16) mg/dL Creatinine 0.72 (0.5-1.4) mg/dL Estim Creat Clear Calc 97.8 Estimated GFR > 60 Random Glucose 88 (60-115) mg/dL Calcium 9.0 (8.4-10.2) mg/dL Total Bilirubin 0.2 (0.0-1.0) mg/dL AST 17 (5-31) U/L ALT 12 (0-31) U/L Alkaline Phosphatase 53 (39-117) U/L C-Reactive Protein 0.14 (< or = 0.50) mg/dL Total Protein 7.2 (6.5-8.0) g/dL Albumin 3.9 (3.5-5.0) g/dL Beta HCG, Quant < 2 mIU/mL Influenza Type A (PCR) NEGATIVE (Negative) Influenza Type B (PCR) NEGATIVE (Negative) RSV RNA Qual (PCR) NEGATIVE (Negative) SARS-CoV-2 RNA (RT-PCR) NEGATIVE (Negative) Discharge Plan Discharge Clinical Impression: Conjunctivitis, Hordeolum externum of right upper eyelid Patient Disposition: Home, Self-Care Instructions: Stye (ED), Conjunctivitis (ED) Additional Instructions: You are being treated for bilateral conjunctivitis and a stye that was found in the upper lid of the right eye. See home care instructions. Use the antibiotic ointment as directed. Use the ketorolac drops as needed for eye pain. Follow up with your primary care provider this week. Prescriptions: New ketorolac 0.4 % drops 1 drp ophthalmic (eye) QID PRN (Reason: pain) Qty: 5 0RF erythromycin 5 mg/gram (0.5 %) ointment 0.5 inch ophthalmic (eye) TID 5 Days Qty: 3.5 0RF No Action hydroxyzine HCl 25 mg tablet 25 mg PO TID PRN (Reason: anxiety) Qty: 84 0RF cholecalciferol (vitamin D3) 25 mcg (1,000 unit) tablet 25 mcg PO DAILY Qty: 90 0RF levothyroxine 112 mcg tablet 112 mcg PO DAILY 90 Days Qty: 90 0RF azelaic acid 15 % gel topical DAILY ketoconazole 2 % cream 1 appl topical escitalopram oxalate 10 mg tablet 10 mg PO BEDTIME 90 Days Qty: 90 1RF prednisone 50 mg tablet 50 mg PO DAILY 5 Days Qty: 5 0RF guaifenesin [Wal-Tussin] 100 mg/5 mL liquid 200 mg PO Q4H PRN (Reason: cough) Qty: 473 0RF Metamucil 3.4 gram/5.4 gram powder 1 tbsp PO DAILY Rx Instructions: mix into at least 8 oz of water or juice before administering metronidazole 0.75 % (37.5mg/5 gram) gel 1 appful vaginal BID 5 Days Qty: 70 2RF Interventions: ED Discharge Assessment Last Done: 08/04/24 21:10 Print Language: Panamanian
[2024-08-04 15:13] LABS: MANUAL DIFF FLAG NO
[2024-08-04 15:18] LABS: Basophils Absolute Auto 0.1 X10*3/uL (0.0-0.2); Basophils Percent Auto 1.6 % (0-2); Eosinophils Absolute Auto 0.3 X10*3/uL (0.0-0.4); Eosinophils Percent Auto 5.3 % (0-4); Hematocrit 42.1 % (37.0-47.0); Hemoglobin 13.8 g/dl (12.0-16.0); Imm Gran Abs Auto 0.02 X10*3/uL (0.00-0.03); Imm Gran Pct Auto 0.4 % (0.0-0.4); Lymphocytes Absolute Auto 1.8 X10*3/uL (1.2-4.9); Lymphocytes Percent Auto 31.1 % (20-40); Mean Corpuscular HGB Conc 32.8 g/dl (31.0-35.0); Mean Corpuscular Hemoglobin 32.7 pg (27.0-33.0); Mean Corpuscular Volume 99.8 fL (80.0-98.0); Mean Platelet Volume 10.6 fL (9.4-12.3); Monocytes Absolute Auto 0.5 X10*3/uL (0.1-1.2); Monocytes Percent Auto 9.4 % (2-11); Neutrophils Absolute Auto 2.9 x10*3/uL (2.0-8.3); Neutrophils Percent Auto 52.2 % (45-73); Platelet Count 335 X10*3/uL (160-400); Red Blood Count 4.22 X10*6/uL (4.20-5.50); Red Cell Distribution Width 12.2 % (11.0-16.0); White Blood Count 5.6 X10*3/uL (4.8-10.8)
[2024-08-04 15:49] LABS: Alanine Aminotransferase 12 U/L (0-31); Albumin Level 3.9 g/dL (3.5-5.0); Anion Gap 10 (12-20); Aspartate Amino Transferase 17 U/L (5-31); Bilirubin Total 0.2 mg/dL (0.0-1.0); Blood Urea Nitrogen 12 mg/dL (9-16); C Reactive Protein 0.14 mg/dL (< or = 0.50); Carbon Dioxide 26 mmol/L (22-29); Chloride 111 mmol/L (96-108); Creatinine Clr Calc Pharmacy 97.8; Estimated Glomerular Filt Rate > 60; Glucose Random 88 mg/dL (60-115); HCG Quantitative < 2 mIU/mL; Potassium 4.1 mmol/L (3.3-5.1); Sodium 143 mmol/L (135-145); Total Protein 7.2 g/dL (6.5-8.0)
[2024-08-04 15:51] LABS: Influenza A PCR NEGATIVE (Negative); Influenza B PCR NEGATIVE (Negative); Resp Syncy Virus RNA Qual PCR NEGATIVE (Negative); SARS COV2 PCR INHOUSE NEGATIVE (Negative)
[2024-08-04 15:54] LABS: Alkaline Phosphatase 53 U/L (39-117)
[2024-08-04 15:57] LABS: Erythrocyte Sedimentation Rate 14 MM/HR (0-20)
[2024-08-04 19:38] VITALS: BP 123/64; PULSE 58; RESP 18; TEMP 36.3; O2SAT 100
[2024-08-04] MEDS: Fluorescein Sodium STRIP 1 STRIP EYE-BOTH (20:57)
[2024-08-04] MEDS: Erythromycin Base 0.5% Oph Oin 1 GM TUBE 1 CM EYE-BOTH (20:57)
[2024-08-04] MEDS: Tetracaine HCl 0.5% Oph Sol 5 ML DROPS 3 DROP EYE-BOTH (20:58)
[2024-08-04 21:07] VITALS: BP 149/80; PULSE 78; RESP 16; TEMP 36.6; O2SAT 100
--- NOTE | 2024-08-04 21:08 | PC.NURSE ---
Provider into assess pt, medicated per mar, reviewed discharge instructions with pt. pt verbalized understanding no sign of distress.
[2024-08-04 21:10] VITALS: BP 149/80; PULSE 78; RESP 16; TEMP 36.6; O2SAT 100
== END 2024-08-04 21:10 | disposition home or self-care (01) ==
PROVIDERS: Nurse Practitioner Family; Emergency Provider Emergency Medicine Emergency Medical Services; PCP Internal Medicine
DX: H00.011 Hordeolum externum right upper eyelid (principal); H10.31 Unspecified acute conjunctivitis, right eye; H53.8 Other visual disturbances; R51.0 Headache with orthostatic component, not elsewhere classified; Z03.818 Encounter for observation for suspected exposure to other biological agents ruled out; Z79.899 Other long term (current) drug therapy
CPT/HCPCS: 0241U; 36415; 70450; 80053; 84702; 85025; 85652; 86140; 99284

== ENCOUNTER → 2024-08-04 14:57 | Outpatient (BNV) | payer OTHER, SELFPAY | PROVIDERS: PCP Internal Medicine; Visit Provider Radiology Diagnostic Radiology | DX: R51.9 Headache, unspecified (principal) | CPT/HCPCS: 70450 ==

== ENCOUNTER 2025-02-17 15:42 | Outpatient (AMB) | payer OTHER, SELFPAY ==
[2025-02-17 15:56] VITALS: BP 106/76; PULSE 82; TEMP 37.3; O2SAT 96; BMI 30.8
--- NOTE | 2025-02-17 15:56 | AM.OFFWIN_ITS ---
Intake Vital Signs 02/17/25 15:56 Height 5 ft 4 in Weight 179 lb 6 oz BMI 30.8 BP 106/76 Blood Pressure Location Lt brachial Position Sitting Pulse 82 Pulse Source Pulse Oximeter Temp 99.1 F Temp Source Oral Pulse Oximetry (%) 96 Oxygen Delivery Method Room Air Intake Visit Reasons: EP-sore throat, rt neck & ear itchy Patient Tobacco Use Status: Former Tobacco user [employer] Coating Required: No Is last menstrual period known: Yes Last menstrual period: 02/06/25 Post menopausal: No Patient : No Allergies morphine (Morphine) Allergy (Severe, Verified 02/17/25 16:04) HIVES HPI HPI Comments History of Present Illness Details 49 y/o Female patient who presents to [facility] walk in clinic with c/o Throat itching and right ear itching and Pain. She endorses difficulty with swallowing saliva due to throat discomfort. Pt does smoke cigarettes (1-2 per week). [facility] Medical History (Updated 02/17/25 @ 16:34 by Cheyanne Park NP) Oral thrush Hx of Hemorrhoids with complication Anxiety Major depression, recurrent Rosacea Vitamin D deficiency Hypothyroidism COVID-19 Cervical cancer screening Simple ovarian cyst Surgical History History of hemorrhoidectomy (~08/11/23) External hemorrhoids Hx of tonsillectomy Family History Paternal Aunt Breast cancer Father Stomach cancer Social History Housing: Apartment Alcohol intake: current Alcohol intake frequency: holidays/special occasions only Comment: Pt transfered to ED for evaluation and Tx of SOB and CP Patient Tobacco Use Status: Former Tobacco user Tobacco use type: Cigarette e-Cigarette/Vaping Use: Never Used Second Hand Smoke Exposure: No Substance Use Type: Marijuana Patient : No service: No Current occupational status: unemployed Gender identity: Female Cognitive needs: No Hearing needs: No Vision needs: Yes (glasses) Female Reproductive History Menstrual Age of Menarche: 9 Date of last menstrual period: 02/06/25 Review of Systems Const All systems reviewed & are unremarkable except as noted in HPI and below Physical Exam Vital Signs: Last Vital Signs Temp 99.1 F 02/17/25 15:56 Pulse 82 02/17/25 15:56 BP 106/76 02/17/25 15:56 Pulse Ox 96 02/17/25 15:56 Oxygen Delivery Method Room Air 02/17/25 15:56 BMI result Body Mass Index 30.8 Const General: no acute distress Nutritional Appearance: overweight Orientation/consciousness: patient oriented x3 HEENT Ears: external ears normal and TM abnormal with fluid behind the TM bilateral General nose exam: Normal external nose present Face and sinus: Yes sinuses nontender Mouth: tongue abnormal ulcerated and with white coating Throat: Yes uvula midline Resp Effort & Inspection: normal respiratory effort Auscultation: clear to auscultation bilaterally Cardio Heart sounds: S1 normal heart sound present and S2 normal heart sound present Neuro General: patient oriented x3, gait normal and moves all extremities Psych Speech and movement: Normal speech and movement present Assessment & Plan Assessment & Plan (1) Oral thrush: Code(s): B37.0 - Candidal stomatitis Plan: B/L TM intact no infection, Fluid behind. Tongue coated with Lesions Ordered Nystatin solution/mouth wash Avoid Hot/Spicy foods. Medications: New nystatin swish and swallow 100,000 units PO TID 250 mL 0RF 7 days B37.0 - Candidal stomatitis Coding Level of Care Code Est Pt Level 4 (95315) Diagnoses Oral thrush B37.0 Time Spent (min) 20
--- OUTSIDE RECORDS SUMMARY | 2025-02-17 15:58 | XMS_ITS | Clinical Summary ---
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 Name Role Phone Unavailable Primary Care Provider Unavailabl e Allergies Active Allergy Reactions Criticality Noted Date Comments Morphine Hives,Anxiety Low 08/04/2022 Immunizations Immunization Administration Dates Next Due Pfizer Covid-19 Vaccine 12+ 08/04/2022, Social History Tobacco Use Types Packs/Day Years Used Date Smoking Tobacco: Never Assessed Comments Unknown Sex and Gender Information Value Date Recorded Sex Assigned at Female 07/14/2022 11:13 AM EST Legal Sex Female 11:08 AM EST Gender Identity Female 07/14/2022 11:13 AM EST Sexual Orientation Straight 07/14/2022 11 :13 AM EST Plan of Treatment Health Maintenance Due Date Last Done Comments CT Colonography 1975 Colonoscopy 1975 Colorectal Cancer Screening 1975 Depression Screening 1975 FIT DNA/Cologuard 1975 FIT 1975 FOBT 1975 HIV Screening 1975 SDOH Screening 1975 Sigmoidoscopy 1975 Disability Screening 1975 Alcohol/Substance Use Screening 1987 Tobacco Screening 1987 Family Planning (PISQ) 1990 Hepatitis C Screening 1993 DTaP/Tdap/Td Vaccines (1 - Tdap) 1994 Hepatitis B Vaccines (1 of 3 - 19+ 3-dose series) 1994 Pap Smear 1996 Cervical Cancer Screening 2005 HPV/Cotest 2005 Mammogram 2015 COVID-19 Vaccine (3 - 2023-2 5 season) 2024 08/04/2022, 07/14/2022 Influenza Vaccine (#1) 2025 Zoster Vaccines (1 of 2) 2025 RSV Patients and Patients Aged 60 years or older (1 - 1-dose 75+ series) 2050 HIB Vaccines Aged Out No longer eligi ble based on patient's age to complete this topic HPV Vaccines Aged Out No longer eligi ble based on patient's age to complete this topic Hepatitis A Vaccines Aged Out No long er eligible based on patient's age to complete this topic IPV Vaccines Aged Out No longer eligi ble based on patient's age to complete this topic Meningococcal B Vaccine Aged Out No l onger eligible based on patient's age to complete this topic Meningococcal Vaccine Aged Out No lizette keith eligible based on patient's age to complete this topic Pneumococcal Vaccine: Pediatrics (0 to 5 Years) and At-Risk Patients (6 to 49) Years Aged Out No longer eligible b ased on patient's age to complete this topic RSV under 20 months Aged Out No longe r eligible based on patient's age to complete this topic Rotavirus Vaccines Aged Out No longer eligible based on patient's age to complete [place] [id number] [facility] [place] [id number] [place] [id number]
== END 2025-02-17 16:33 | disposition home or self-care (01) ==
PROVIDERS: PCP Internal Medicine; Visit Provider Nurse Practitioner Family
DX: B37.0 Candidal stomatitis (principal)

== ENCOUNTER → 2025-02-17 15:42 | Outpatient (BNVA) | payer OTHER, SELFPAY | PROVIDERS: PCP Internal Medicine; Visit Provider Nurse Practitioner Family | DX: B37.0 Candidal stomatitis (principal) | CPT/HCPCS: 99212 ==

== ENCOUNTER 2025-03-31 12:52 | Outpatient (REF) | payer OTHER, SELFPAY ==
[2025-03-31 13:04] LABS: MANUAL DIFF FLAG NO
[2025-03-31 13:54] LABS: Hematocrit 42.9 % (37.0-47.0); Hemoglobin 14.2 g/dl (12.0-16.0); Imm Gran Abs Auto 0.03 X10*3/uL (0.00-0.03); Imm Gran Pct Auto 0.4 % (0.0-0.4); Lymphocytes Absolute Auto 2.3 X10*3/uL (1.2-4.9); Mean Corpuscular HGB Conc 33.1 g/dl (31.0-35.0); Mean Corpuscular Hemoglobin 32.3 pg (27.0-33.0); Mean Corpuscular Volume 97.7 fL (80.0-98.0); NRBC Abs Auto 0.000 X10*3/uL (0.0-0.012); NRBC Pct Auto 0.0 /100WBC (0.0-0.2); Platelet Count 341 X10*3/uL (160-400); Red Blood Count 4.39 X10*6/uL (4.20-5.50); White Blood Count 8.1 X10*3/uL (4.8-10.8)
[2025-03-31 14:36] LABS: Alanine Aminotransferase 19 U/L (0-31); Albumin Level 4.4 g/dL (3.5-5.0); Alkaline Phosphatase 67 U/L (39-117); Anion Gap 13 (12-20); Aspartate Amino Transferase 26 U/L (5-31); Blood Urea Nitrogen 13 mg/dL (9-16); Calcium 9.3 mg/dL (8.4-10.2); Carbon Dioxide 22 mmol/L (22-29); Chloride 112 mmol/L (96-108); Cholesterol 215 mg/dL (<200); Estimated Glomerular Filt Rate > 60; HDL Cholesterol 60 mg/dL (>40); Iron 98 mcg/dL (30-160); Percent Iron Saturation 28 % (15-50); Potassium 4.1 mmol/L (3.3-5.1); Sodium 143 mmol/L (135-145); Total Iron Binding Capacity 345 mcg/dL (228-428); Total Protein 7.4 g/dL (6.5-8.0); Triglycerides 71 mg/dL (<150); Unsaturated Iron Binding 247 ug/dL
[2025-03-31 14:49] LABS: Folate 10.5 ng/mL (> or = 4.0); Vitamin B12 434 pg/mL (200-900)
[2025-03-31 15:00] LABS: Thyroid Stimulating Hormone 9.18 uIU/mL (0.32-4.0)
--- OUTSIDE RECORDS SUMMARY | 2025-03-31 15:00 | XMS_ITS | Clinical Summary ---
Author Organization [email or web address] Address [address] [place] [address] Care Team Providers Care Communications Technologist Name Role Phone Unavailable Primary Care Provider [...] 2005 Mammogram 2015 COVID-19 Vaccine (3 - 2024-2 6 season) 2025 08/04/2022, 07/14/2022 Influenza Vaccine (#1) 2025 Zoster [...] complete [place] [id number] [facility] [id number] [place] [id number]
[2025-04-01 03:48] LABS: HIV Num 1 0.05 S/CO (0.00-0.99)
== END 2025-03-31 12:53 | disposition home or self-care (01) ==
LOC: HO.LAB 12:52
PROVIDERS: PCP Internal Medicine; Visit Provider Internal Medicine
DX: Z11.4 Encounter for screening for human immunodeficiency virus [HIV] (principal); E03.8 Other specified hypothyroidism; E53.8 Deficiency of other specified B group vitamins; E06.3 Autoimmune thyroiditis; E78.5 Hyperlipidemia, unspecified; E55.9 Vitamin D deficiency, unspecified; D64.9 Anemia, unspecified; G47.00 Insomnia, unspecified; F33.2 Major depressive disorder, recurrent severe without psychotic features; F41.9 Anxiety disorder, unspecified; R51.9 Headache, unspecified
CPT/HCPCS: 36415; 80053; 80061; 82306; 82607; 82746; 83540; 84443; 85025; 87389; 96127; 99212

== ENCOUNTER 2025-03-31 14:18 | Outpatient (AMB) | payer OTHER, SELFPAY ==
--- NOTE | 2025-03-31 14:22 | MHC.PC.OV ---
Vital Signs 03/31/25 14:24 Height 5 ft 4 in Weight 180 lb 2 oz BMI 30.9 BP 120/68 Blood Pressure Location Lt brachial Position Sitting Pulse 68 Pulse Source Pulse Oximeter Temp 97.3 F Temp Source Temporal Artery Scan Pulse Oximetry (%) 95 Oxygen Delivery Method Room Air Intake Visit Reasons: Headaches Intake Note: Patient is here to follow up on Headaches. Closing Agent Required: No Cable Testers Helper: Not Required per policy Accompanied by: Self / Same As Patient Allergies morphine (Morphine) Allergy (Severe, Verified 03/31/25 14:36) HIVES Medication List - Last Reconciled 03/31/25 by Roxana Gonzales MD cholecalciferol (vitamin D3) 25 mcg PO DAILY levothyroxine 112 mcg PO DAILY 90 days metronidazole 0.75% 1 appl topical BEDTIME Tobacco use date assessed: 03/31/25 Dental Screening Dental Screen Date: 03/31/25 Did you have a dental visit in the last 12 months?: Yes Did you have a dental problem in the last 6 months where you did not have access to dental care?: No Was dental information given to patient?: Patient has dentist HPI HPI Comments History of Present Illness Details The patient is a 49-year-old female presenting for follow-up on her chronic conditions, including hypothyroidism and mental health concerns. She has a history of hypothyroidism, which has been managed with medication. Recently, she has been experiencing fatigue and tiredness, despite normal CBC and CMP results. The patient also reports low vitamin D levels and has been experiencing headaches. A previous head CT was normal, and she is being referred to neurology for further evaluation. In terms of mental health, she has a diagnosis of bipolar disorder and severe recurrent major depressive disorder, with a PHQ-9 score of 21. She also has severe generalized anxiety disorder, with a HAIDER-7 score of 21. She is being referred to Psych Outpatient Services for further management. The patient complains of occasional tremors and has been advised to decrease caffeine intake to help manage this symptom. [facility] Medical History (Updated 03/31/25 @ 14:45 by Roxana Gonzales MD) Oral thrush Hx of Hemorrhoids with complication Anxiety Major depression, recurrent Rosacea Vitamin D deficiency Hypothyroidism COVID-19 Cervical cancer screening Simple ovarian cyst Surgical History History of hemorrhoidectomy (~08/11/23) External hemorrhoids Hx of tonsillectomy Family History Paternal Aunt Breast cancer Father Stomach cancer Social History (Updated 03/31/25 @ 14:41 by Roxana Gonzales MD) Housing: Apartment Alcohol intake: current Alcohol intake frequency: a few times a month Alcohol type: wine and hard liquor Comment: Pt transfered to ED for evaluation and Tx of SOB and CP Patient Tobacco Use Status: Former Tobacco user Tobacco use type: Cigarette e-Cigarette/Vaping Use: Never Used Second Hand Smoke Exposure: Yes Substance Use Type: Marijuana service: No Current occupational status: unemployed Gender identity: Female Cognitive needs: No Hearing needs: No Vision needs: Yes (glasses) Female Reproductive History Menstrual Age of Menarche: 9 Questionnaire PHQ-9 Over the last 2 weeks, how often have you been bothered by any of the following problems? 1. Little interest or pleasure in doing things: nearly every day 2. Feeling down, depressed, or hopeless: nearly every day 3. Trouble falling or staying asleep, or sleeping too much: nearly every day 4. Feeling tired or having little energy: nearly every day 5. Poor appetite or overeating: nearly every day 6. Feeling bad about yourself - or that you are a failure or have let yourself or your family down: several days 7. Trouble concentrating on things, such as reading the newspaper or watching television: nearly every day 8. Moving or speaking so slowly that other people could have noticed. Or the opposite - being so fidgety or restless that you have been moving around a lot more than usual: more than half the days 9. Thoughts that you would be better off or of hurting yourself in some way: not at all Total score: 21 Depression Screening Interpretation: Positive (no suicidal thoughts) Depression Screening Follow-up: Existing condition and Follow-up Visit Requested Depression Screening Done: Yes 57414 - PHQ-9 Billing: Yes Source: Developed by Drs. Jesus Manuel Schuler, Yesenia Alcaraz, Alfonso Cannon and colleagues, with an educational matthew from [employer]. Thrive Questionnaire Date Thrive assessed: 03/31/25 I am a: Patient What is your living situation today?: I have a steady place to live Within the past 12 months, did the food you bought not last and you didn't have the money to get more?: Never true Within the past 12 months, did you worry whether your food would run out before you got money to buy more?: Never true Do you have trouble paying for medicines?: No Do you have trouble getting transportation to medical appointments?: No Do you have trouble paying your heating and electricity bill?: No Do you have trouble taking care of your child, family member or friend?: No Do you have trouble with day-to-day activities such as bathing, preparing meals, shopping, managing finances, etc.?: No Are you currently unemployed and looking for a job?: No Are you interested in more education?: No Please select the resources that you would like help with: None Currently or been in a relationship where the following occur: No concerns reported THRIVE Score: 0 AUDIT C Alcohol Use Questionnaire (AUDIT-C) 1. How often do you have a drink containing alcohol?: Monthly or less 2. How many drinks containing alcohol do you have on a typical day when you are drinking?: 1 or 2 Total Score: 1 Score Reviewed/Action Taken: No HAIDER-7 AMB Questionnaire HAIDER-7 Date HAIDRE - 7 assessed: 03/31/25 Feeling nervous, anxious, or on edge: 3 = Nearly every day Not being able to stop or control worryin = Nearly every day Worrying too much about different things: 3 = Nearly every day Trouble relaxin = Nearly every day Being so restless that it is hard to sit still: 3 = Nearly every day Becoming easily annoyed or irritable: 3 = Nearly every day Feeling afraid as if something awful might happen: 3 = Nearly every day Total HAIDER-7 score (0-4 normal; 5-9 mild; 10-14 moderate; 15-21 severe): 21 Source: Developed by Drs. Jesus Manuel Schuler, Yesenia Alcaraz, Alfonso Cannon and colleagues, with an educational matthew from [employer]. HAIDER-7 Assessment Billing HAIDER-7 Assessment Tool: HAIDER-7 Assessment 21958 Review of Systems Const All systems reviewed & are unremarkable except as noted in HPI and below Card Denies chest pain at rest, Denies chest pain with activity, Denies edema, Denies irregular heart rhythm, Denies claudication, Denies dyspnea, Denies dyspnea on exertion, Denies orthopnea, Denies paroxysmal nocturnal dyspnea and Denies slow heart rate Resp Denies cough, Denies dyspnea and Denies dyspnea on exertion GI Denies abdominal pain, Denies change in bowel habits, Denies excessive flatus, Denies nausea and Denies vomiting Denies urinary incontinence, Denies urinary hesitancy and Denies urinary urgency Physical exam (Primary Care) Vital Signs: Last Vital Signs Temp 97.3 F 03/31/25 14:24 Pulse 68 03/31/25 14:24 BP 120/68 03/31/25 14:24 Pulse Ox 95 03/31/25 14:24 Oxygen Delivery Method Room Air 03/31/25 14:24 BMI result Body Mass Index 30.9 BMI Assessment/Plan discussion: High BMI High, discussed plan: lifestyle, weight reduction, dietary and physical activity Tobacco/Smoking Status: Tobacco use Status Tobacco use date assessed 03/31/25 03/31/25 14:33 Patient Tobacco Use Status Former Tobacco user 03/31/25 14:33 Tobacco use type Cigarette 03/31/25 14:33 e-Cigarette/Vaping Use Never Used 03/31/25 14:33 PHQ-9: PHQ-9 Score PHQ-9: Total score 21 03/31/25 14:33 Depression Screening Interpretation: Positive (no suicidal thoughts) Depression Screening Follow-up: Existing condition and Follow-up Visit Requested Thrive Assessment: Date of Thrive Assessment Date Thrive assessed 03/31/25 03/31/25 14:33 Currently or been in a relationship where the following occur: No concerns reported Resp Effort & Inspection: normal respiratory effort Auscultation: clear to auscultation bilaterally Cardio Jugular venous distension: no JVD Rate: regular rate Rhythm: regular rhythm Heart sounds: S1 normal heart sound present and S2 normal heart sound present Extrem General: Yes full ROM Coding Level of Care Code Est Pt Level 4 (77117) Complex EM visit Add On G2211 Diagnoses Severe recurrent major depression F33.2 Anxiety F41.9 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; E06.3 Hypothyroidism type: due to Thor's thyroiditis Headache R51.9 Insomnia G47.00 Additional Codes PHQ-9 - 26758 - PHQ-9 Billing: Yes ([id number]) HAIDER-7 Assessment Billing - HAIDER-7 Assessment Tool: HAIDER-7 Assessment 59421 ([id number]) Time Spent (min) 24 Assessment & Plan Assessment & Plan (1) Severe recurrent major depression: Code(s): F33.2 - Major depressive disorder, recurrent severe without psychotic features Category: Medical (2) Anxiety: Code(s): F41.9 - Anxiety disorder, unspecified Category: Medical (3) Hypothyroidism: Code(s): E03.9 - Hypothyroidism, unspecified Category: Medical Qualifiers: Hypothyroidism type: due to Thor's thyroiditis Qualified Code(s): E03.8 - Other specified hypothyroidism; E06.3 - Autoimmune thyroiditis (4) Headache: Code(s): R51.9 - Headache, unspecified Category: Medical (5) Insomnia: Code(s): G47.00 - Insomnia, unspecified Category: Medical Plan Plan 1. Hypothyroidism, unspecified E03.9 The patient's hypothyroidism is being managed with medication. No changes to the current treatment plan were discussed during this visit. 2. Vitamin D deficiency, unspecified E55.9 The patient reports low vitamin D levels. No specific treatment plan was discussed during this visit. 3. Major depressive disorder, recurrent severe without psychotic features F33.2 HCC 59 The patient has severe recurrent major depressive disorder, with a PHQ-9 score of 21. She is being referred to Psych Outpatient Services for further management. 4. Generalized anxiety disorder F41.1 The patient has severe generalized anxiety disorder, with a HAIDER-7 score of 21. Referral to Psych Outpatient Services was made for further management. 5. Headache, unspecified R51.9 The patient reports headaches, and a previous head CT was normal. She is being referred to neurology for further evaluation. Orders: Referrals Neurology Referral R51.9 - Headache, unspecified Psychiatry Outpatient Consultation Service F33.2 - Major depressive disorder, recurrent severe without psychotic features Medications: New magnesium glycinate 300 mg (3 x 100 mg magnesium) PO BEDTIME 270 caps 1RF 90 days
[2025-03-31 14:24] VITALS: BP 120/68; PULSE 68; TEMP 36.3; O2SAT 95; BMI 30.9
== END 2025-03-31 14:47 | disposition home or self-care (01) ==
LOC: HO.HMCH 14:19
PROVIDERS: PCP Internal Medicine; Visit Provider Internal Medicine
DX: F33.2 Major depressive disorder, recurrent severe without psychotic features (principal); F41.9 Anxiety disorder, unspecified; E03.8 Other specified hypothyroidism; E06.3 Autoimmune thyroiditis; R51.9 Headache, unspecified; G47.00 Insomnia, unspecified